=== PATIENT | male | born 1950 | race Caucasian/White ===

== ENCOUNTER 2017-01-03 04:29 | Inpatient (IN) | payer MEDICARE, BC ==
--- OUTSIDE RECORDS SUMMARY | 2017-01-03 04:31 | XMS | Clinical Summary ---
:1950 Author Organization [facility] Address [address] [place] [address] Phone Care Team Providers Name Role Phone , Primary Care Provider Unavailable Allergies No Known Allergies Current Medications Prescription Sig. Disp. Refills Start Date End Date Status rosuvastatin (CRESTOR) Take 40 mg by mouth Active 40 MG tablet daily. CYANOCOBALAMIN, Take by mouth. Active VITAMIN B-12, (VITAMIN B-12 ORAL) aspirin 81 MG EC Take 81 mg by mouth Active tablet daily. gabapentin (NEURONTIN) Take 1,200 mg by mouth Active 300 MG tablet 2 (two) times daily. insulin asp Inject subcutaneously Active prt-insulin aspart 100 2 (two) times daily unit/mL (70-30) Soln with breakfast and dinner. canagliflozin Take 100 mg by mouth Active (INVOKANA) 100 mg Tab daily. silodosin (RAPAFLO) 8 Take 8 mg by mouth Active mg Cap daily. FERROUS FUMARATE ORAL Take 1 tablet by mouth Active daily. omeprazole (PRILOSEC Take 20 mg by mouth Active OTC) 20 MG tablet daily. calcium Take 1 tablet by mouth Active carbonate-vitamin D2 2 (two) times daily. 500 mg(1,250mg) -200 unit tablet warfarin (COUMADIN) 6 Take 6 mg by mouth Active MG tablet once a week. warfarin (COUMADIN) 10 Take 9 mg by mouth Active MG tablet daily. 6 days a week enoxaparin (LOVENOX) Inject 30 mg 05/04/2014 Active 30 mg/0.3 mL Syrg subcutaneously 2 (two) times daily. Active Problems Problem Noted Date Aortic stenosis 03/07/2013 S/P AVR (aortic valve replacement) 03/07/2013 Social History Tobacco Use Types Packs/Day Years Used Date Former Smoker Cigarettes Quit: 01/04/1987 Alcohol Use Drinks/Week oz/Week Comments No Sex Assigned at Date Recorded Not on file Last Filed Vital Signs Vital Sign Reading Time Taken Blood Pressure 161/71 05/09/2014 8:31 AM TEST TECHNICIAN Pulse 81 05/09/2014 8:31 AM TEST TECHNICIAN Temperature 36.3 C (97.3 F) 05/09/2014 8:31 AM TEST TECHNICIAN Respiratory Rate 20 05/09/2014 8:31 AM TEST TECHNICIAN Oxygen Saturation 97% 05/09/2014 8:31 AM TEST TECHNICIAN Inhaled Oxygen Concentration - - Weight 98.2 kg (216 lb 9.6 oz) 05/09/2014 8:31 AM TEST TECHNICIAN Height 180.3 cm (5' 11") 03/14/2013 2:10 PM TEST TECHNICIAN Body Mass Index 30.21 05/09/2014 8:31 AM TEST TECHNICIAN Plan of Treatment Health Maintenance Due Date Last Done Comments INFLUENZA VACCINE 01/03/2017 Implants Implanted Type Area Encyclopedia Research Worker Device Expiration Model / Identifier Date Serial / Lot Valve,Aortic [place] Sm Cuff 23mm - [id number] Valves N/A: [employer] 03/08/2017 [id number] / Implanted:Qty: 1 on 03/07/2013 by Aurelio Vitale MD [employer] [id number] / Results Not on filefrom Last 3 Months
[2017-01-03 05:05] LABS: #Eosinphils 0.1 thou/uL (0.0-0.7); #Lymphocytes 0.6 thou/uL (1.20-3.40); #Monocytes 0.3 thou/uL (0.11-0.59); %Eosinophils 2.1 % (0.0-10.0); %Lymphocytes 9.6 % (21.0-51.0); %Monocytes 4.9 % (0.0-10.0); Hematocrit 22.3 % (42.0-52.0); Mean Platelet Volume 7.6 fL (7.4-10.4); Red Blood Cell (RBC) Count 2.21 mill/uL (4.70-6.10)
[2017-01-03 05:13] LABS: PTT 34.4 SEC (22.9-36.1); Prothrombin Time 20.8 SEC (12.0-14.7)
[2017-01-03] MEDS ORDERED: Fentanyl 20 MCG/ML 250 ML ONE (05:13)
[2017-01-03 05:19] LABS: Oxyhemoglobin 95.1 % (94.0-97.0); Sodium 139 mmol/L (135-148)
[2017-01-03 05:20] LABS: Troponin I 0.111 ng/mL (< 0.028)
[2017-01-03 05:22] LABS: Bilirubin Negative (Negative); Blood, Urine Small (Negative); Glucose, Urine (Dipstick) >=1000 mg/dL (Negative); Ketone, Urine Negative (Negative); Nitrite Negative (Negative); Protein, Urine (Dipstick) 300 mg/dL (Neg-Trace); Urobilinogen 0.2 mg/dL (0.2-1.0)
[2017-01-03 05:25] LABS: Bacteria/HPF 1+ HPF (None Seen); RBC/HPF 0-3 HPF (0-3); Squamous Epithelial None Seen HPF (0-3)
[2017-01-03 05:26] LABS: ALT (SGPT) 56 U/L (8-55); AST (SGOT) 59 U/L (5-34); Alkaline Phosphatase 93 U/L (40-150); Anion Gap 13 mmol/L (10-20); BUN (Urea Nitrogen) 46 mg/dL (8.4-25.7); Bilirubin, Total 0.3 mg/dL (0.2-1.2); CK (CPK) 176 U/L (30-200); Calc. Creatinine Clearance 0 mL/min (70-130); Calcium 8.7 mg/dL (7.8-10.44); Carbon Dioxide 23 mmol/L (23-31); Chloride 109 mmol/L (98-107); Estimated GFR-MDRD 40; Globulin 2.3 g/dL (2.4-3.5); Protein, Total 5.9 g/dL (5.8-8.1)
[2017-01-03 05:27] LABS: Mechanical Tidal Volume 550 ml; Mode SIMV; Pressure Support 10 cmH2O; Vent YES
[2017-01-03 05:36] LABS: #Eosinphils 0.1 thou/uL (0.0-0.7); #Lymphocytes 0.5 thou/uL (1.20-3.40); #Monocytes 0.4 thou/uL (0.11-0.59); #Neutrophils 6.2 thou/uL (1.40-6.50); %Basophils 0.1 % (0.0-1.0); %Eosinophils 1.1 % (0.0-10.0); %Lymphocytes 6.6 % (21.0-51.0); %Monocytes 6.1 % (0.0-10.0); Hematocrit 20.5 % (42.0-52.0); Mean Platelet Volume 7.8 fL (7.4-10.4); Red Blood Cell (RBC) Count 2.02 mill/uL (4.70-6.10); White Blood Cell (WBC) Count 7.2 thou/uL (4.8-10.8)
[2017-01-03 05:38] LABS: Lactic Acid - Sepsis 2.4 mmol/L (0.5-2.2)
[2017-01-03 05:40] LABS: Hyaline Casts/LPF 0-3 HYALINE CAST LPF (0-3 Hyaline); Yeast-All Forms None Seen HPF (None Seen)
[2017-01-03] MEDS ORDERED: Fentanyl 100 MCG/2 ML VIAL ONE (05:47)
[2017-01-03] MEDS ORDERED: Sodium Chloride 0.9% 100 ML ONE (05:58)
[2017-01-03] MEDS ORDERED: cefTRIAXone\\ROCEPHIN 2 GM VIAL ONE (05:58)
[2017-01-03 06:01] LABS: Iron 79 ug/dL (65-175)
[2017-01-03] MEDS ORDERED: Lorazepam 2 MG/ML VIAL ONE (06:02)
[2017-01-03] MEDS ORDERED: GENTAMICIN SULFATE IVPB SCH (06:15)
[2017-01-03] MEDS ORDERED: SODIUM CHLORIDE 0.9% IVPB SCH (06:15)
[2017-01-03] MEDS ORDERED: Vancomycin HCl 1.5 GM in Sodium Chloride 0.9% 250 ML 300 ML IVPB SCH (06:15)
--- NOTE | 2017-01-03 06:17 | PDOC.EVN ---
Event Note - Event Note Event Note: 286697 h&p dictated 1. NSTEMI + ABnormal cardiac enzymes 2. ACute anemia 3. Acute respiratory failure 4. H/O DM type 2 4. FALL 6. htn pLAN: SEE ORDER
[2017-01-03] MEDS ORDERED: Dextrose 5% in Water 1,000 ML IV PRN (06:31)
[2017-01-03] MEDS ORDERED: Dextrose 50% Abboject 50 ML SYRINGE SLOW IVP PRN (06:31)
[2017-01-03 08:26] LABS: Troponin I 0.337 ng/mL (< 0.028)
[2017-01-03] MEDS: Sodium Chloride 0.9% 1,000 ML IV SCH ×2 (08:28→15:52)
[2017-01-03] MEDS ORDERED: Heparin 5,000 UNITS/ML VIAL SC SCH (09:00)
[2017-01-03 09:29] VITALS: BMI 32.4
--- NOTE | 2017-01-03 09:52 | RAD ---
RADIOGRAPH CHEST 1 VIEW: Date: 01/03/17 Time: 0447 HOURS HISTORY: 66-year-old male with respiratory distress and diminished breath sounds, status post intubation. COMPARISON: 10/20/16. FINDINGS: Endotracheal tube at mid to lower thoracic trachea. Lung volumes are low, lower than on the prior st udy. Signs of previous CABG. Multifocal bilateral subsegmental atelectasis and/or scar, greater than on prior study. No consolidation or pulmonary alveolar edema. This is supine positioning, which wou ld make it insensitive for pneumothorax detection. Patient is on a backboard. IMPRESSION: 1. No pulmonary edema or consolidation. 2. Status post intubation. 3. Status post coronary artery bypass graft surgery is evidence for coronary atherosclerotic karon PERRY [] POS: [facility]
--- NOTE | 2017-01-03 09:59 | RAD ---
RADIOGRAPH ABDOMEN 1 VIEW SUPINE: Date: 01/03/17 Time: 0448 hours HISTORY: 66-year-old male status post abdominal trauma. FINDINGS: The image is limited to the lower abdomen and pelvis (excluding the ischial rami and lateral edge of left pelvis). There is gas in nondilated descending colon and rectum. There is paucity of bowel gas elsewhere. A thin catheter is visualized over the right lower quadrant of the abdomen. Patient is o n a backboard. IMPRESSION: Limited field of view. Nonspecific findings. POS: [facility]
--- NOTE | 2017-01-03 10:03 | CON ---
DATE OF CONSULTATION: 01/03/2017 CONSULTING PHYSICIAN: Dr. Schmidt from the hospitalist group. REASON FOR CONSULTATION: Acute respiratory failure. HISTORY OF PRESENT ILLNESS: The patient is a 66-year-old male who was found down at home unresponsive with agonal respirations. He was intubated in the field and brought here for further e valuation. PAST MEDICAL HISTORY: 1. Remarkable for aortic valve replacement for which he is anticoagulated, believe he has also had some type of colonic bleeding and has required intermittent transfusions for that. 2. Coronary artery disease. 3. Myocardial infarction. 4. Stroke. 5. Hyperlipidemia. 6. Diabetes mellitus. PAST SURGICAL HISTORY: He has had foot surgery, aortic valve replacement, cyst removal, left should er surgery, tonsillectomy. ALLERGIES: None. SOCIAL HISTORY: , nonsmoker, nondrinker. MEDICATIONS: Prior to admission, vitamin B6 100 mg daily, warfarin alternating 6 mg and 9 mg dose, thiamine 250 mg daily, Rapaflo 8 mg nightly, Crestor 40 mg daily, omeprazole 40 mg daily, Meloxicam 15 mg daily, Lispro insulin 20 units b.i.d., NovoLog 70/30 60 units b.i.d., Vascepa 2 mg b.i.d., josefina apentin 900 mg b.i.d., [id number] mg daily, Zyrtec 10 mg daily, aspirin 81 mg daily. REVIEW OF SYSTEMS: Unobtainable as the patient is on mechanical ventilation. PHYSICAL EXAMINATION: VITAL SIGNS: Temperature is 98.1, blood pressure 153/70, respiratory rate 18, pulse 80. GENERAL: He is currently intubated on mechanical ventilation. He will wake up for ri and follow co mmands. HEENT: Pupils are reactive. Sclerae are anicteric. Oropharynx clear. NECK: No JVD. CHEST: Fairly clear without wheezing. CARDIOVASCULAR: S1, S2 regular. ABDOMEN: Soft, obese, nontender. EXTREMITIES: No clubbing, cyanosis, or edema. LABORATORY DATA: White blood cell count 7.2, hemoglobin 6.8, hematocrit 20.5, platelet count 151,00 0. INR 1.7, pH 7.41, pCO2 of 33, pO2 105 on SIMV rate 17, tidal volume 550, PEEP 5, pressure suppor t 10, FIO2 60%. Troponin 0.337. Sodium 140, potassium 5.2, chloride 109, CO2 23, BUN 46, creatinin e 1.7, glucose 280. BNP 122. X-RAY FINDINGS: Chest x-ray shows diminished lung volumes without evidence of effusion. ASSESSMENT: 1. Syncopal episode. 2. Possible cardiac ischemia. 3. Acute respiratory failure requiring mechanical ventilation. 4. Diabetes mellitus. PLAN: 1. Cardiology consultation. 2. Continue supportive care with mechanical ventilation for the time being. 3. I am not clear why he is on antibiotics unless we are trying to rule out for sepsis - pulmonary labs indicate the septic. 4. Anemia - transfuse blood.
--- NOTE | 2017-01-03 10:45 | PDOC.EVN ---
Event Note - Event Note Event Note: Patient seen and examined, and daughter at bedside, remains intubated, continue with blood transfusion, cardio and critical team following, likely extubation for later today, no other changes in plan for now. Anticoagulation needs to be determined by cardiology given elevated troponin, further management per consultants. Case and plan d/w patient's family at length, they understand and agree with plan.
[2017-01-03] MEDS: Famotidine/PF 20 mg/2ml Vial SLOW IVP SCH ×2 (11:22→20:41)
[2017-01-03] MEDS: Heparin 25,000 units/D5W 500 ML IV SCH (11:22)
[2017-01-03] MEDS: Heparin 10,000 UNITS/ 10 ML VIAL SLOW IVP SCH ×2 (11:23→18:41)
[2017-01-03] MEDS ORDERED: Piperacillin/Tazobactam 3.375 GM in Sodium Chloride 0.9% 100 ML IVPB SCH (12:00)
--- NOTE | 2017-01-03 12:15 | CT ---
PRELIMINARY REPORT/[facility]/EMERGENCY AFTER HOURS PROCEDURE: EXAM: CT Head Without Intravenous Contrast EXAM DATE/TIME: Exam ordered 01/03/2017 5:35 AM CLINICAL HISTORY: 66 years old, male; Signs and symptoms; Other: Unresponsive TECHNIQUE: Axial computed tomography images of the head/brain without intravenous contrast. COMPARISON: No relevant prior studies available. FINDINGS: Brain: Normal. No hemorrhage. No significant white matter disease. No edema. Ventricles: Normal. No ventriculomegaly. Bones/joints: Normal. No acute fracture. Soft tissues: Normal. Sinuses: Unremarkable as visualized. No acute sinusitis. Mastoid air cells: Unremarkable as visualized. No mastoid effusion. Other findings: Patient is intubated. IMPRESSION: No acute intracranial hemorrhage. Thank you for allowing us to participate in the care of your patient. Dictated and Authenticated by: Aurelio Alvarez MD 01/03/2017 5:54 AM Central Time ([place] \T\ [facility]) FINAL REPORT EMERGENCY AFTER HOURS STUDY CT BRAIN NONCONTRAST: HISTORY: 66-year-old male with loss of consciousness, unresponsive. FINDINGS: There is no midline shift or any other mass effect. There is no evidence of acute intracranial hemo rrhage, large cortical infarct, obstructive hydrocephalus, or extraaxial fluid collection. The calv arium is intact. This report agrees with the preliminary report by [facility]. IMPRESSION: No acute intracranial findings. sukhwinder [] POS: [facility]
--- NOTE | 2017-01-03 12:17 | CT ---
PRELIMINARY REPORT/[facility]/EMERGENCY AFTER HOURS PROCEDURE: EXAM: CT Cervical Spine Without Intravenous Contrast EXAM DATE/TIME: Exam ordered 01/03/2017 5:36 AM CLINICAL HISTORY: 66 years old, male; Signs and symptoms; Other: Unrsponsive; Patient HX: Unresponsive TECHNIQUE: Axial computed tomography images of the cervical spine without intravenous contrast. COMPARISON: No relevant prior studies available. FINDINGS: Vertebrae: No acute cervical spine fracture is identified. Discs/spinal canal/neural foramina: Typical shoulder artifact is present which limits evaluation of the spinal canal. No spinal canal stenosis. Soft tissues: Normal. Lung apices: The visualized portions of the lung apices are normal. Tubes, lines and devices: Endotracheal tube and feeding tube are present. IMPRESSION: No acute cervical spine fracture is identified. Thank you for allowing us to participate in the care of your patient. Dictated and Authenticated by: Aurelio Alvarez MD 01/03/2017 6:01 AM Central Time ([place] \T\ [place]) FINAL REPORT EMERGENCY AFTER HOURS STUDY CT CERVICAL SPINE NONCONTRAST: HISTORY: 66-year-old male status post cervical trauma from fall. FINDINGS: There are no jumped or perched facets. There is no evidence of acute fracture. The vertebral body heights are maintained. There is no prevertebral soft tissue swelling. This report agrees with the preliminary report by [facility]. IMPRESSION: No evidence of acute fracture or acute traumatic subluxation. sukhwinder [] POS: [facility]
--- NOTE | 2017-01-03 12:19 | CT ---
PRELIMINARY REPORT/[facility]/EMERGENCY AFTER HOURS PROCEDURE: EXAM: CT Abdomen and Pelvis Without Intravenous Contrast EXAM DATE/TIME: Exam ordered 01/03/2017 6:53 AM CLINICAL HISTORY: 66 years old, male; Signs and symptoms; Other: Unresponsive TECHNIQUE: Axial computed tomography images of the abdomen and pelvis without intravenous contrast. Coronal reformatted images were created and reviewed. COMPARISON: No relevant prior studies available. FINDINGS: Lower thorax: There are small bilateral pleural effusions with bilateral consolidations at the lung bases suggestive of pulmonary edema. ABDOMEN: Liver: There are no focal liver lesions present. Gallbladder and bile ducts: Multiple calcified gallstones are present. No ductal dilation. Pancreas: The pancreas is normal. No ductal dilation. Spleen: The spleen is normal. Adrenals: The adrenal glands are normal. Kidneys and ureters: The kidneys are normal. No obstructing stones. No hydronephrosis. Stomach and bowel: The duodenum is unremarkable. The colon is normal. There is no evidence of intest inal perforation or obstruction. No mucosal thickening. Appendix: A normal appendix is identified. PELVIS: Bladder: The bladder is decompressed by a Bonner catheter but is otherwise normal. There is a small a mount of intraluminal air consistent with instrumentation. No stones. Reproductive: Unremarkable as visualized. ABDOMEN and PELVIS: Intraperitoneal space: Normal. No free air. No significant fluid collection. Bones/joints: There are sternal wires consistent with previous sternotomy incision. No acute fractur e. No dislocation. Soft tissues: Normal. Vasculature: The vasculature demonstrates diffuse moderate atherosclerotic calcification. No abdomin al aortic aneurysm. Lymph nodes: Normal. No enlarged lymph nodes. Tubes, lines and devices: A nasogastric tube is seen entering the stomach. IMPRESSION: 1. There are small bilateral pleural effusions with bilateral consolidations at the lung bases sugge stive of pulmonary edema. 2. No acute abdominal pelvic pathology. Thank you for allowing us to participate in the care of your patient. Dictated and Authenticated by: Aurelio Alvarez MD 01/03/2017 7:23 AM Central Time ([place] \T\ [facility]) FINAL REPORT CT ABDOMEN AND PELVIS WITHOUT CONTRAST: Date: 01/03/17 HISTORY: Evaluate for hematoma. Found at home unresponsive. Falls. FINDINGS: Small effusions. Mild atelectatic changes. Heart size is prominent. Dense aortic calcifications with likely a valve replacement. Extensive coronary artery calcifications. No nephroureterolithiasis or hydroureteronephrosis. No secondary evidence of recently passed stone. Extensive vascular calcificat ions of the aorta. No aneurysmal dilatation. There appears to be a soft tissue contusion of anterior abdominal wall. No rectus sheath hematoma. No retroperitoneal hematoma. Moderate facet arthropathy lower lumbar spine. No lumbar spine compression fracture. No fracture of the pelvis. Large osteophyt e formation is noted of the thoracic spine. No displaced rib fracture. IMPRESSION: Findings and impression are concordant with the preliminary report by [facility]. POS: [facility]
--- NOTE | 2017-01-03 13:53 | HP ---
DATE OF ADMISSION: 01/03/2017 CHIEF COMPLAINT: Unresponsive. HISTORY OF PRESENT ILLNESS: Patient is 66 years old male with a past medical history of mechanical aortic valve replacement; diabetes mellitus, type 2; hyperlipidemia; hypertension; coronary artery disease; stroke; was brought to the ER, because of acute respiratory failure. According to the , the patient has had a fall 2 days back on Wednesday. Denies losing any consciousness. The patient was doing fine and he went to bed last night. He woke up this morning to go to the restroom and went to check on him and patient was found on the floor gasping for air, so EMS was called. Upon EMS arrival, the patient was found to be lethargic and gasping for air. So, patient was intubated in the field and brought to the ER. Upon ER arrival, the patient is on the vent support, so not able to get much history. According to the , the patient is currently having some anemia for the past 1 year, and being getting IV iron transfusions and patient is scheduled to get MediPort placement on coming Wednesday, so he was off Coumadin for a few days, but he started taking Coumadin since Wednesday. Denies any cough. Denies sputum production. No other history available from the patient. According to the , no other issues at this time. PAST MEDICAL HISTORY: As per HPI. PAST SURGICAL HISTORY: CABG, mechanical aortic valve replacement. SOCIAL HISTORY: No smoking, no alcohol, no drugs. FAMILY HISTORY: Positive for heart problems. MEDICATIONS: Reviewed. REVIEW OF SYSTEMS: Unavailable from the patient, as the patient is currently intubated. PHYSICAL EXAMINATION: VITAL SIGNS: In the ER, blood pressure 101/60, pulse ox 100% on 60% FIO2, afebrile, respiration rate 25. GENERAL: This patient is lethargic, sedated, and intubated, but arousable, following commands. NECK: Supple. No JVD. ORAL CAVITY: Positive for ET tube. CARDIOVASCULAR SYSTEM: S1, S2 present. Positive for clicks. No murmurs, no rubs, no gallops. RESPIRATORY SYSTEM: No wheezing. Positive for rhonchi, diminished at the bases , on vent support. GASTROINTESTINAL: Abdomen is soft, nontender, no guarding, no organomegaly, no masses felt. Distended. MUSCULOSKELETAL: No edema. CRANIAL NERVE SYSTEM: Awake, follows commands. Strength intact, sensory intact. PSYCHIATRIC: Mood is appropriate at this time. INTEGUMENTARY: No obvious rashes seen. Positive for birthmark on the right upper side of the chest. MUSCULOSKELETAL: Chronic skin changes, trace edema present. CRANIAL NERVE SYSTEM: lethargic, not following commands. LABORATORY DATA: At the time of H and P performed, white count 7.2, hemoglobin 6.8, platelet count is 151. PT 20.8, INR 1.7. ABG showed pH 7.41, pCO2 43, pO2 of 105. BMP showed sodium 140, potassium 5.2, chloride 109, CO2 23, BUN 46 , creatinine 1.72. Lactic acid 2.4. CK-MB 7.2, troponin 0.111. EKG positive for some ST depressions. ASSESSMENT AND PLAN: The patient is a 66 years old male. 1. Possible non-ST elevation myocardial infarction with abnormal EKG, plus history of mechanical aortic valve replacement. Plan to consult Cardiology to evaluate the patient. Plan to keep patient n.p.o. We will monitor patient closely. If CT head and CT spine is negative, we will go ahead and give a dose of Lovenox. We will monitor the patient closely. 2. Acute respiratory failure, etiology unclear at this time. We will monitor the patient closely. Continue vent support. We will go ahead and consult Pulmonary to evaluate the patient. 3. History of mechanical aortic valve replacement. INR is subtherapeutic. We will go ahead and give a dose of Coumadin today. If the CT is negative, we will check with Cardiology about starting the patient on heparin drip. 4. History of gastrointestinal bleeds and acute anemia. We will go ahead and type and cross and transfuse 2 units of packed RBCs. We will monitor patient closely. 5. History of hypertension. Hold blood pressure medications at this time. 6. History of diabetes mellitus, type 2. Monitor blood sugars. We will do insulin sliding scale. 7. History of coronary artery disease. Continue home medications. The case was discussed in detail with the patient and patient's and daughter at the bedside. SATYA
--- NOTE | 2017-01-03 14:04 | CON ---
DATE OF CONSULTATION: 01/03/2017 REASON FOR CONSULTATION: Evaluation for proceeding with prior planned MediPort placement. PERTINENT HISTORY: The patient is a 66-year-old male scheduled for elective, outpatient MediPort placement tomorrow morning by Dr. Rojas. He has a chronic anemia with need for periodic red blood cell and iron infusions. He has extremely poor venous access and had been referred for MediPort placement to facilitate the above. He is also on chronic coumadin anticoagulation for a mechanical aortic valve. He was admitted this morning after being found down at home at which time he was intubated. He has since been extubated. Mental status has returned to baseline. He is receiving 2 units of packed red blood cells for admission hemoglobin of 6.8. His last coumadin dose was yesterday. INR this morning was 1.7. PAST MEDICAL HISTORY: 1. Hypertension. 2. Dyslipidemia. 3. Diabetes. 4. Coronary artery disease status post OK and coronary artery bypass grafting. 5. Aortic stenosis status post mechanical aortic valve replacement. 6. Cerebrovascular accident with left hemiparesis. PAST SURGICAL HISTORY: 1. Coronary artery bypass grafting. 2. Aortic valve replacement. 3. Removal of pilonidal cyst. 4. Left shoulder surgery. 5. Tonsillectomy. ALLERGIES: None. SOCIAL HISTORY: Prior smoker, having quit more than 10 years ago. Nondrinker. FAMILY HISTORY: Noncontributory. REVIEW OF SYSTEMS: Denies chest pain or shortness of breath. No history of liver disease. MEDICATIONS PRIOR TO ADMISSION: Aspirin, Zyrtec, Farxiga, gabapentin, insulin 70/30, omeprazole, Crestor, Rapaflo, and warfarin with last dose yesterday. CURRENT MEDICATIONS: Pepcid, heparin drip, and multiple p.r.n. medications. LABORATORY FINDINGS: INR 1.7. Creatinine 1.72. Hemoglobin 6.8. Platelet count 151,000. PHYSICAL EXAMINATION: VITAL SIGNS: Weight 239 pounds. Blood pressure 121/69, heart rate 95, temperature 97.7. GENERAL: Overweight male in no acute distress. NECK: Without JVD or adenopathy. HEART: Regular rate and rhythm with no murmurs. LUNGS: Clear. EXTREMITIES: With 2+ edema in each leg. VASCULAR: Palpable radial and femoral pulses. No carotid bruits were appreciated. NEUROLOGIC: Significant for left-sided weakness. IMPRESSION: Poor venous access with ongoing need of intermittent red blood cell and iron infusions. RECOMMENDATIONS: Proceed to MediPort placement is planned in the a.m. Will stop intravenous heparin one hour prior to procedure. The indications, benefits , alternatives, and risks have already been explained to the patient and his family by Dr. Rojas. The patient and family wished to proceed. All new questions answered. SATYA
[2017-01-03] MEDS ORDERED: Lorazepam 2 MG/ML VIAL SLOW IVP PRN (14:30)
[2017-01-03] MEDS ORDERED: Morphine Sulfate 2 MG/ML SYRINGE SLOW IVP PRN (14:30)
[2017-01-03] MEDS ORDERED: Fentanyl 20 MCG/ML 250 ML IVPB SCH (14:30)
[2017-01-03] MEDS ORDERED: DISCONTINUE PREVIOUS NARCOTIC PAIN MEDICATIONS AND BENZODIAZEPINES FS SCH (14:30)
[2017-01-03] MEDS ORDERED: Propofol 1,000 MG/100 ML VIAL IV PRN (14:30)
[2017-01-03] MEDS ORDERED: Vancomycin HCl 1.5 GM, Admixture Fee 1 EACH in Sodium Chloride 0.9% 250 ML 300 ML IVPB SCH (18:00)
[2017-01-03] MEDS: HumaLOG 300 UNITS/3 ML VIAL SC PRN ×2 (18:13→20:51)
--- NOTE | 2017-01-03 20:41 | CON ---
DATE OF CONSULTATION: 01/03/2017 CARDIOLOGY CONSULTATION REFERRING PHYSICIAN: Saulo Schmidt M.D. REASON FOR CONSULTATION: Elevated cardiac enzymes in the phase of profound anemia. HISTORY OF PRESENT ILLNESS: Mr. Moses is a 66-year-old gentleman with a history of coron bob artery disease and valvular heart disease who was found unconscious in the bathroom by his . He was found on the floor of the bathroom gasping for air and EMS was summoned. He was lethargic upon EMS arrival and he was intubated in the field and brought to the emergency department. He has subsequently been extubated successfully and is stable hemodynamically. He was found to be profound ly anemic and was receiving 2 units of packed red blood cells at the time of my evaluation. He has been on chronic Coumadin for anticoagulation for mechanical aortic valve replacement and this has been held recently for preparation for MediPort placement by Dr. Rojas. PAST MEDICAL HISTORY: 1. Coronary artery disease with a history of CABG. 2. Valvular heart disease with history of mechanical aortic valve prosthesis. 3. CVA with left-sided residual neurologic deficits. 4. Recurrent anemia. 5. Type 2 diabetes mellitus. 6. Dyslipidemia. 7. Hypertension. PAST SURGICAL HISTORY: 1. CABG. 2. Mechanical aortic valve replacement. ALLERGIES: No known drug allergies. SOCIAL HISTORY: He denies tobacco use, ethanol abuse, and illicit recreational drug use. FAMILY HISTORY: Negative with respect to premature atherosclerosis. CURRENT MEDICATIONS AT HOME: Include: 1. Aspirin 81 mg daily. 2. Zyrtec 10 mg daily. 3. Dapagliflozin 10 mg daily. 4. Gabapentin 900 mg. 5. Vascepa 2 g b.i.d. 6. Insulin 60 units subcu daily. 7. Lispro 20 units subcu daily. 8. Meloxicam 15 mg daily. 9. Omeprazole 40 mg daily. 10. Crestor 40 mg daily. 11. Rapaflo 80 mg daily. 12. Coumadin 9 mg alternating with 6 mg daily. 13. Pyridoxine 100 mg daily. REVIEW OF SYSTEMS: As per history of present illness. Remainder of 12 system review is negative. PHYSICAL EXAMINATION: VITAL SIGNS: Blood pressure is 110/51, pulse 62 and regular, respiratory rate 16 and nonlabored, te mperature 98.8, oxygen saturation 94% on room air. GENERAL: This is a well-developed, overweight 66-year-old gentleman in no acute distress. He was intubated on my initial evaluation prepping for extubation. He was alert and oriented, ans wered questions appropriately. HEENT: Head is atraumatic, normocephalic. Pupils were equally round and reactive. Conjunctivae ar e clear. No oral lesions. NECK: Supple, no JVD, thyromegaly, or carotid bruits. CHEST: Symmetrical inspiration and expiration. HEART: Regular in rate and rhythm with crisp metallic click. PMI is nondisplaced, not enlarged. LUNGS: Clear to auscultation in all [place]. No adventitious sounds appreciated. ABDOMEN: Soft, nontender, nondistended, without mass or organomegaly. Bowel sounds are present in all 4 quadrants. No flank bruits auscultated. EXTREMITIES: 2+ pulses noted bilaterally. Upper and lower extremity strength 5/5 bilaterally. No clubbing, cyanosis or significant edema. NEUROLOGIC: Grossly intact with no obvious focal neurologic deficits. DATABASE: EKG reveals sinus rhythm, nonspecific ST changes. LABORATORY DATA: CBC reveals white count of 7, H\T\H is 6 and 20, platelet count 151,000. Differen tial white blood cells normal. Red cell indices are macrocytic with MCV of 101. Coagulation studie s: PT is 20.8, INR of 1.7. Chemistries: Electrolytes; sodium is 140, potassium 5.2, chloride 109, bicarbonate 23, BUN and creatinine of 46 and 1.7, GFR is estimated at 40, glucose 280. LFTs: AST 59, ALT 56. Total CK is 176 with MB fraction of 7.2. Troponin is indeterminate with level of 0.111 . BNP mildly elevated at 122. ASSESSMENT: 1. Syncope secondary to hypovolemia and profound anemia. 2. Profound anemia with questionable etiology. 3. Chronic kidney disease stage 3. 4. Type 2 diabetes mellitus. 5. Coronary artery disease with history of coronary artery bypass graft, stable. 6. Mechanical aortic valve prosthesis with chronic anticoagulation.
[2017-01-03] MEDS ORDERED: FLU VACC TS2017-18 (>65YR) 0.5 ML SYRINGE IM ONE (21:00)
[2017-01-04 01:24] LABS: PTT Greater than 250.0 SEC (22.9-36.1)
[2017-01-04 05:00] LABS: Prothrombin Time 19.7 SEC (12.0-14.7)
[2017-01-04 05:01] LABS: PTT 88.6 SEC (22.9-36.1)
[2017-01-04 05:30] LABS: Anion Gap 8 mmol/L (10-20); BUN (Urea Nitrogen) 33 mg/dL (8.4-25.7); Calc. Creatinine Clearance 87 mL/min (70-130); Calcium 8.2 mg/dL (7.8-10.44); Carbon Dioxide 25 mmol/L (23-31); Chloride 112 mmol/L (98-107); Estimated GFR-MDRD 55
[2017-01-04] MEDS: Heparin 25,000 units/D5W 500 ML IV SCH (05:30)
[2017-01-04 05:33] LABS: #Eosinphils 0.1 thou/uL (0.0-0.7); #Lymphocytes 0.7 thou/uL (1.20-3.40); #Monocytes 0.5 thou/uL (0.11-0.59); #Neutrophils 5.4 thou/uL (1.40-6.50); %Basophils 0.6 % (0.0-1.0); %Eosinophils 1.7 % (0.0-10.0); %Lymphocytes 11.1 % (21.0-51.0); %Monocytes 6.8 % (0.0-10.0); Elliptocytes SLIGHT = 2-5 cells (100X) (0-1/hpf); Hematocrit 26.2 % (42.0-52.0); Mean Platelet Volume 8.1 fL (7.4-10.4); Tear Drops SLIGHT = 2-5 cells (100X) (0-1/hpf); White Blood Cell (WBC) Count 6.7 thou/uL (4.8-10.8)
[2017-01-04] MEDS ORDERED: Lidocaine 1% w/Epinephrine 1:200K 30 ML VIAL ONE (06:43)
[2017-01-04] MEDS ORDERED: Fentanyl 100 MCG/2 ML VIAL ONE (06:57)
[2017-01-04] MEDS ORDERED: Diprivan 20 ML ONE (06:57)
[2017-01-04] MEDS ORDERED: Lidocaine 1% PF 5 ML VIAL ONE (07:45)
[2017-01-04] MEDS ORDERED: Propofol 200 MG/20 ML VIAL ONE (07:45)
[2017-01-04] MEDS ORDERED: Promethazine HCl 25 MG/ML VIAL SLOW IVP PRN (08:47)
[2017-01-04] MEDS ORDERED: Ondansetron HCl/PF 4 MG/2 ML Vial IVP PRN (08:47)
[2017-01-04] MEDS ORDERED: Promethazine HCl 25 MG/ML VIAL IM PRN (08:47)
[2017-01-04] MEDS ORDERED: Promethazine HCl 25 MG/ML VIAL ONE (08:52)
[2017-01-04] MEDS ORDERED: Ondansetron HCl/PF 4 MG/2 ML Vial ONE (08:53)
--- NOTE | 2017-01-04 09:03 | OP ---
PREOPERATIVE DIAGNOSIS: Chronic anemia, in need of intravenous access. PROCEDURE: Placement of left internal jugular MediPort catheter. SURGEON: Jhoan Rojas M.D. ANESTHESIA: TIVA with local 1% with epinephrine. PROCEDURE IN DETAIL: After adequate TIVA had been accomplished, the patient was prepped and draped. A 1% lidocaine was used to infiltrate the left neck region and using ultrasound, the jugular vein was cannulated and a wire inserted. Under fluoroscopic guidance, the wire was placed in the superio r vena cava. Following this, a separate incision was made on the anterior chest wall after lidocain e had been infiltrated. Dilator sheath was then placed under fluoroscopy following which the cathet er was advanced. The catheter repeatedly was going up the right subclavian vein and for this reason a wire was passed through the catheter and directed into the superior vena cava. Then, peel-away s jose was removed and the catheter was then tunneled above the anterior to the clavicle to the incis ion on the chest where it was connected to the MediPort and flushed. Incision in the neck was check ed to ensure the catheter, had a nice gentle curve. Following this, the wounds were closed in layer s and the patient is to be taken to the recovery room.
[2017-01-04] MEDS ORDERED: Warfarin Sodium 5 MG TAB PO SCH (09:28)
--- NOTE | 2017-01-04 09:53 | PRG ---
DATE OF SERVICE: 01/04/2017 The patient is doing better. He had a MediPort placed this morning. PHYSICAL EXAMINATION: VITAL SIGNS: On exam temperature 98.6, pulse 92, blood pressure 121/42. 24 hour intake 3513, outpu t 3235. HEENT: Unremarkable. NECK: No JVD. CHEST: Clear to auscultation without wheezing. CARDIAC: S1 and S2 regular. ABDOMEN: Soft. EXTREMITIES: No edema. LABORATORY DATA: White blood cell count 6.7, hematocrit 26.2, platelet count 142. PTT 88.6, sodium 140, potassium 4.7, chloride 112, CO2 25, BUN 33, creatinine 1.3, glucose 190. ASSESSMENT: 1. Status post cardiopulmonary arrest related to severe anemia. 2. History of aortic valve replacement requiring anticoagulation. 3. Chronic gastrointestinal blood loss. 4. Status post MediPort placement. 5. Diabetes mellitus. PLAN: The patient can be transferred out to telemetry. He has been restarted on Lovenox by Dr. Chito lees. Most of his issues are cardiac and GI in nature. I am available as needed.
--- NOTE | 2017-01-04 10:22 | RAD ---
ONE VIEW CHEST: HISTORY: Status post Mediport catheter placement. COMPARISON: 01/03/2017 FINDINGS: One view chest demonstrates a left-sided Mediport catheter with the distal tip crossing the midline and terminating in the expected region of the proximal right subclavian vein. Confirmation of posit ion is recommended. No pneumothorax. Sternotomy wires are present. There is atherosclerosis of th e aorta. Lung volumes are diminished. IMPRESSION: Left-sided Mediport catheter, as above. Confirmation of catheter tip position is recommended. POS: [facility]
--- NOTE | 2017-01-04 10:22 | PDOC.PN ---
- Subjective Encounter Start Date: 01/04/17 Encounter Start Time: 10:19 Subjective: alert, has mild cough, OW ok - Objective MAR Reviewed: Yes Vital Signs & Weight: Vital Signs (12 hours) Temp Pulse Ox 01/04/17 04:00 98.6 F 01/04/17 00:00 98.6 F 99 Weight Weight 240 lb 1.334 oz Most Recent Monitor Data Heart Rate from ECG 92 NIBP 121/42 NIBP BP-Mean 61 Respiration from ECG 21 SpO2 97 I&O: 01/03/17 01/04/17 01/05/17 06:59 06:59 06:59 Intake Total 3513.1 Output Total 3235 Balance 278.1 Result Diagrams: 01/04/17 04:09 01/04/17 04:09 Additional Labs: Accuchecks 01/04/17 01/03/17 01/03/17 06:13 20:50 17:56 POC Glucose 176 H 235 H 213 H 01/03/17 12:54 POC Glucose 193 H Phys Exam - Physical Examination Constitutional: NAD Neck: no JVD Respiratory: no wheezing, no rales Cardiovascular: RRR, no significant murmur crisp valve sounds Gastrointestinal: soft, non-tender, positive bowel sounds Musculoskeletal: edema present Dx/Plan (1) Acute respiratory failure with hypoxia and hypercapnia Code(s): J96.01 - ACUTE RESPIRATORY FAILURE WITH HYPOXIA; J96.02 - ACUTE RESPIRATORY FAILURE WITH HYPERCAPNIA Status: Acute (2) H/O prosthetic aortic valve replacement Code(s): Z95.2 - Status: Chronic (3) Anemia Code(s): D64.9 - ANEMIA, UNSPECIFIED Status: Acute Qualifiers: Anemia type: unspecified type Qualified Code(s): D64.9 - Anemia, unspecified (4) DM type 2 (diabetes mellitus, type 2) Status: Acute Qualifiers: Diabetes mellitus complication status: with kidney complications Diabetes mellitus complication detail: with chronic kidney disease Chronic kidney disease stage: stage 3 (moderate) (5) CAD (coronary artery disease) Code(s): I25.10 - ATHSCL HEART DISEASE OF [place] CORONARY ARTERY W/O ANG PCTRS Status: Acute Qualifiers: Coronary Disease-Associated Artery/Lesion type: [place] artery [place] vs. transplanted heart: [place] heart Associated angina: without angina Qualified Code(s): I25.10 - Atherosclerotic heart disease of [place] coronary artery without angina pectoris (6) HTN (hypertension) Code(s): I10 - ESSENTIAL (PRIMARY) HYPERTENSION Status: Chronic Qualifiers: Hypertension type: essential hypertension Qualified Code(s): I10 - Essential (primary) hypertension - Plan post mediport -: on anticoag -: post transfusion -: cont to monitor, discuss with consultants * .
[2017-01-04] MEDS: Enoxaparin Sodium 40 MG/0.4 ML SYRINGE SC SCH ×2 (10:45→21:21)
[2017-01-04] MEDS ORDERED: Enoxaparin Sodium 40 MG/0.4 ML SYRINGE SC SCH (10:45)
[2017-01-04] MEDS: Famotidine/PF 20 mg/2ml Vial SLOW IVP SCH ×2 (10:45→21:21)
[2017-01-04] MEDS: Aspirin 81 mg Enteric Coated Tablet PO SCH (10:46)
[2017-01-04] MEDS: Sodium Chloride 0.9% 1,000 ML IV SCH (10:57)
--- NOTE | 2017-01-04 13:57 | PQF ---
DATE: 01-04-17 ATTN: DR. HOSSEIN MENDEZ Please exercise your independent, professional judgment in responding to the clarification form. Clinical indicators are provided on the bottom of this form for your review Please check appropriate box(s): [ ] Acute blood loss anemia [ ] Anemia: [ ] Aplastic [ ] Nutritional [ ] Drug induced (specify) ___ [ ] Hemolytic [ ] Hereditary [ ] Acquired [ ] Autoimmune [ ] Non-autoimmune [ ] Enzyme disorder [ ] Chronic Anemia: [ ] Blood loss [ ] Hemolytic [ ] Simple [ ] Due to Vitamin B12 Deficiency [ ] Other [ ] Anemia of Chronic Disease (please specify) [ ] Other diagnosis [ xx ] Unable to determine In addition, please specify: Present on Admission (POA): [ x] Yes [ ] No [ ] Unable to determine For continuity of documentation, please document condition throughout progress notes and discharge summary. Thank You. CLINICAL INDICATORS - SIGNS / SYMPTOMS / LABS ER DIAGNOSIS: AMS, AGONAL BREATHING, ANEMIA, FALLS H&P: HISTORY OF GI BLEEDS AND ACUTE ANEMIA. WE WILL GO AHEAD AND T&C AND TRANSFUSE 2 UNITS OF PACKED RBC'S. EVENT NOTE DR. PRESTON 01-03-17: ACUTE ANEMIA CONSULT NOTE DR. MATHEW 01-04-17: CHRONIC GI BLOOD LOSS PN DR. MENDEZ 01-04-17: ACUTE ANEMIA HGB: 01-03-17: 7.4, 6.8 01-04-17: 8.5 RISK FACTORS: H&P: HISTORY OF GI BLEEDS AND ACUTE ANEMIA. WE WILL GO AHEAD AND T&C AND TRANSFUSE 2 UNITS OF PACKED RBC'S. ER DOCUMENTATION: HX OF CHRONIC NOSE BLEEDS TREATMENTS: BLOOD TRANSFUSION 01-03-17: 2 UNITS OF LEUK-REDUCED RBC (This form is maintained as a part of the permanent medical record) 2014 [employer]. All Rights Reserved [email or web address] Office: [phone] [facility]
[2017-01-04] MEDS: Warfarin Sodium 2 MG TAB PO SCH (16:53)
[2017-01-04] MEDS: HumaLOG 300 UNITS/3 ML VIAL SC PRN (17:43)
[2017-01-04] MEDS: Acetaminophen 325 MG TAB PO PRN (17:44)
[2017-01-04] MEDS: Silodosin 8 MG CAP PO SCH (21:21)
[2017-01-04] MEDS ORDERED: Ondansetron ODT 4 MG TAB SL PRN (21:38)
[2017-01-04] MEDS: Ibuprofen 200 MG TAB PO PRN (21:52)
[2017-01-04 22:21] LABS: Mean Platelet Volume 7.7 fL (7.4-10.4); Red Blood Cell (RBC) Count 2.79 mill/uL (4.70-6.10); White Blood Cell (WBC) Count 6.6 thou/uL (4.8-10.8)
[2017-01-04] MEDS: Ondansetron HCl/PF 4 MG/2 ML Vial IVP PRN (22:26)
[2017-01-04 22:28] LABS: PTT 43.3 SEC (22.9-36.1)
[2017-01-04 22:29] LABS: Prothrombin Time 18.3 SEC (12.0-14.7)
[2017-01-04 22:37] LABS: Anion Gap 14 mmol/L (10-20); BUN (Urea Nitrogen) 28 mg/dL (8.4-25.7); Calc. Creatinine Clearance 80 mL/min (70-130); Calcium 8.5 mg/dL (7.8-10.44); Carbon Dioxide 21 mmol/L (23-31); Chloride 110 mmol/L (98-107); Estimated GFR-MDRD 50
[2017-01-04 22:38] LABS: #Eosinphils 0.1 thou/uL (0.0-0.7); #Lymphocytes 0.5 thou/uL (1.20-3.40); #Monocytes 0.4 thou/uL (0.11-0.59); #Neutrophils 5.6 thou/uL (1.40-6.50); %Basophils 0.2 % (0.0-1.0); %Eosinophils 0.9 % (0.0-10.0); %Lymphocytes 7.7 % (21.0-51.0); %Monocytes 6.1 % (0.0-10.0); Anisocytosis SLIGHT = 6-15 cells (100X) (0-5/hpf); Basophilic Stippling SLIGHT = 1-2 cells (100X) (None Seen); Elliptocytes SLIGHT = 2-5 cells (100X) (0-1/hpf); Polychromasia SLIGHT = 2-3 cells (100X) (0-2/hpf); Tear Drops SLIGHT = 2-5 cells (100X) (0-1/hpf)
[2017-01-04] MEDS: Albuterol Sulfate 1.25 MG/3 ML NEB NEB SCH (22:51)
--- NOTE | 2017-01-04 23:04 | RAD ---
UPRIGHT PORTABLE CHEST ONE VIEW: History: 66-year-old male, follow up abnormal pleural and parenchymal changes on prior CT scan, 01-03-17. Comparison: 01-04-17 chest one view. FINDINGS: Post underlying sternotomy. Left central venous catheter and injection port. The tip of the jugular venous catheter appears to ascend into the region of the right subclavian vein/innominate vein. Mini mal patchy linear and parenchymal changes are noted bilaterally. Slight costophrenic angle blunting bilaterally. Poor inspiration. IMPRESSION: Stable chest from 01-04-17 9:10 a.m. No new process. POS: [facility]
[2017-01-04] MEDS: Piperacillin/Tazobactam 3.375 GM in Sodium Chloride 0.9% 100 ML IVPB SCH (23:58)
[2017-01-05] MEDS: HumaLOG 300 UNITS/3 ML VIAL SC PRN ×3 (02:11→18:28)
[2017-01-05] MEDS: Ondansetron HCl/PF 4 MG/2 ML Vial IVP PRN ×2 (03:44→15:36)
[2017-01-05 05:33] LABS: Oxyhemoglobin 95.7 % (94.0-97.0); Sodium 142 mmol/L (135-148)
[2017-01-05 05:37] LABS: Mode 2LNC; Modified Allen's Test POSITIVE; Vent NO
[2017-01-05] MEDS: Ibuprofen 200 MG TAB PO PRN (05:46)
[2017-01-05] MEDS: Piperacillin/Tazobactam 3.375 GM in Sodium Chloride 0.9% 100 ML IVPB SCH ×4 (05:47→23:51)
[2017-01-05] MEDS: Acetaminophen 325 MG TAB PO PRN ×2 (05:59→21:38)
[2017-01-05 06:19] LABS: #Lymphocytes 0.6 thou/uL (1.20-3.40); #Monocytes 0.4 thou/uL (0.11-0.59); #Neutrophils 5.3 thou/uL (1.40-6.50); %Basophils 0.2 % (0.0-1.0); %Eosinophils 0.7 % (0.0-10.0); %Lymphocytes 9.3 % (21.0-51.0); %Monocytes 6.5 % (0.0-10.0); Anisocytosis SLIGHT = 6-15 cells (100X) (0-5/hpf); Hematocrit 27.2 % (42.0-52.0); Mean Platelet Volume 7.6 fL (7.4-10.4); Polychromasia SLIGHT = 2-3 cells (100X) (0-2/hpf); Tear Drops SLIGHT = 2-5 cells (100X) (0-1/hpf); White Blood Cell (WBC) Count 6.3 thou/uL (4.8-10.8)
[2017-01-05 06:20] LABS: Anion Gap 13 mmol/L (10-20); BUN (Urea Nitrogen) 26 mg/dL (8.4-25.7); Calc. Creatinine Clearance 79 mL/min (70-130); Calcium 8.6 mg/dL (7.8-10.44); Carbon Dioxide 20 mmol/L (23-31); Chloride 111 mmol/L (98-107); Estimated GFR-MDRD 49
[2017-01-05] MEDS: Albuterol Sulfate 1.25 MG/3 ML NEB NEB SCH ×3 (06:52→19:32)
--- NOTE | 2017-01-05 06:59 | CON ---
DATE OF CONSULTATION: 01/04/2017 REFERRING PHYSICIAN: Eduardo Lynch M.D. REASON FOR CONSULTATION: Anemia, history of black tarry stool off and on over the last 2 weeks. HISTORY OF PRESENT ILLNESS: Mr. Stephanie Howell is a 66-year-old male who is known to me from before. The patient had not seen me over the last couple of years. The patient has had coronary a rtery bypass graft many years ago. The patient also had aortic valve replacement done in March 06 and was placed on Coumadin. Since being on Coumadin, he has had multiple episodes of GI bleedin g. The patient has been hospitalized several times at the [facility] with anemi a due to blood loss and very less stool. The patient has had a bleeding ulcer, bleeding AVM in the stomach. He also had a colonoscopy with removal of polyps in the past. The patient has had multipl e EGDs and colonoscopies which were negative for any pathology for GI bleeding. The patient had a c apsule endoscopy in 2013 and was found to have small bowel AVMs. He was sent to [place] recently fo r an enteroscopy, but it could not be done because of hyperglycemia. Subsequently, he went to [facility] in [place] and had a single balloon enteroscopy. He was found to have AVM with bleeding sm all bowel and was cauterized. This was done in I believe 07/2014. The patient has done well over t he last couple of years. The patient last time saw me was in 08/2014 and had not seen me subsequent ly. The patient being seen by DAILY Perry at the [facility]. The patient has had some an emia off and on and has been transfused and also transferred to Dr. Garg for Hematology input. As per the patient, the patient will be receiving intermittent iron infusion every week over the las t several weeks. Because of lack of IV access, he was referred to Dr. Rojas for a MediPort [facility] t. The patient was brought to the ER by the family after the patient was found unresponsive yesterd ay at home. Apparently, he went to the bathroom and his found him lying on the floor, gasping for air. He was brought to the ER and was intubated and was on the ventilator for a day. At the pr esent time, he is on the telemetry unit. He is awake, alert, and communicative. The patient denies any abdominal pain, nausea, or vomiting. Denies history of any dysphagia or odynophagia. The karl ent tells me he has had some black tarry stool off and on over the last couple of weeks. The stool is tarry and almost like a jet black. It is also foul smelling. The patient has had no stool today . He has had no stool yesterday. The last one was done probably Wednesday or Wednesday and it was mariangel k as per the patient. Yesterday, when he fainted, he does not remember having any chest pain, diffi culty breathing, palpitation. There is no history of any hematemesis or melena. The patient has be en seen by Dr. Rojas and has had a MediPort placement today. Laboratory data shows WBC of 6700, adm itting hemoglobin 7.4, today it is 8.5 after 2 units of packed RBCs. He also had 2 units of packed RBCs a week or 10 days ago. His PT IS 19.7, INR is 1.6, PTT is 88.6. He has no other relevant hist ory. ALLERGIES: None. SOCIAL HISTORY: The patient is . He does not smoke or drink alcohol. MEDICAL ILLNESSES: 1. Obesity. 2. Diabetes mellitus. 3. Aortic valve replacement. 4. Hypertension. 5. Hyperlipidemia. 6. Coronary artery disease. 7. Status post coronary artery bypass graft. 8. Prostatic hypertrophy. 9. Peripheral neuropathy. 10. Anemia due to recurrent GI bleeding. 11. Past history of small bowel AVM, status post enteroscopy and heater probe therapy. 12. Past history of gastric ulcer bleeding. MEDICATIONS: List reviewed. SURGERIES: 1. Status post coronary artery bypass graft. 2. Status post left shoulder surgery. 3. Status post aortic valve replacement. 4. Enteroscopy in 2014. 5. Status post EGD and colonoscopy several times in the past. FAMILY HISTORY: Father, CVA. Mother and multiple members also have diabetes mellitus. Grandmother , heart disease. REVIEW OF SYSTEMS: Ten-point system review, SKEIN INSPECTOR: History of syncope yesterday morning. No history of chronic headache, no seizure disorder, no dizziness. Respiratory System: No history of chronic cough, hemoptysis, dyspnea. Cardiovascular System: No palpitation, no chest pain, no orthopnea or PND. Gastrointestinal: No abdominal pain, nausea, vomiting. History of black tarry stool over last couple of weeks. No hematochezia. Bowel movements are regular. Genitourinary: No dysuria, hematuria, or frequency of urination. Musculoskeletal: Unremarkable. Endocrine: Unremarkable. Hematological: Unremarkable. PHYSICAL EXAMINATION: GENERAL: The patient is awake, alert, and oriented to time, place, and person. VITAL SIGNS: Stable. Temperature on admission was 97.7 degrees Fahrenheit. Today, he has been spi [place]antana fever of 100.1 to 101.4. His pulse is 88, blood pressure is 149/65. HEENT: Conjunctivae clear. NECK: Supple. No adenitis or thyromegaly noted. CARDIOVASCULAR SYSTEM: First and second heart sounds normal. He has loud S3. LUNGS: Clear to auscultation. ABDOMEN: Soft to palpate. No organomegaly. No tenderness. No masses. EXTREMITIES: Reveal no edema. LABORATORY DATA: PT today 19.7, INR 1.6, PTT 88.6. Hemoglobin is 8.5 after 2 units of blood, hemat ocrit 26.2, MCV 96.9, platelet count 142,000, polymorphs 79, lymphocytes 11. Serum chemistries: So dium 140, potassium 4.7, chloride 112, bicarbonate 25, BUN is 33, creatinine 1.31, glucose 190, calc ium 8.2. CLINICAL IMPRESSION: 1. A 66-year-old male with a history of black tarry stool and anemia. His anemia is actu ally normocytic indicate acute blood loss. The patient has had gastrointestinal bleeding over the l ast several years since his aortic valve replacement in 2012. The patient has had multiple EGDs and colonoscopies in the past. He also had a capsule endoscopy revealing small arteriovenous malformat ion and subsequent endoscopy revealed a bleeding arteriovenous malformation and was cauterized. The patient presents with syncope and the etiology unclear at the present time. 2. Anemia due to blood loss. 3. Past history of gastric ulcer bleeding. 4. Past history of small bowel arteriovenous malformations bleeding. 5. Colon polyp. 6. Obesity. 7. Diabetes mellitus. 8. Hypertension. 9. Status post aortic valve replacement. 10. Status post coronary artery bypass graft. 11. Fever of unknown etiology. RECOMMENDATIONS: 1. Transfuse. 2. Possible EGD tomorrow if his fever comes down. I will hold on his EGD until his fever is back t o baseline.
[2017-01-05] MEDS: Enoxaparin Sodium 40 MG/0.4 ML SYRINGE SC SCH (08:03)
[2017-01-05] MEDS: Famotidine/PF 20 mg/2ml Vial SLOW IVP SCH ×2 (08:03→21:38)
[2017-01-05] MEDS: Aspirin 81 mg Enteric Coated Tablet PO SCH (08:03)
[2017-01-05] MEDS: Vancomycin HCl 1 GM in Premix Bag 1 BAG IVPB SCH ×2 (08:04→21:38)
--- NOTE | 2017-01-05 09:52 | PRG ---
DATE OF SERVICE: 01/05/2017 SUBJECTIVE: He apparently vomited this morning, but then was hungry enough to eat his breakfast. H is family states he had fever last night. PHYSICAL EXAMINATION: VITAL SIGNS: His temperature is currently 99.6, T-max is 101.4 at 07:30 last night, pulse 95, respi rations 16, O2 saturation 98% on 2 liters, blood pressure 161/68. GENERAL APPEARANCE: He is awake and alert, in no distress. HEENT: Unremarkable. NECK: No JVD. LUNGS: No crackles. CARDIAC: S1 and S2 regular. He has a little oozing from his right IJ surgical site. ABDOMEN: Soft, nontender. EXTREMITIES: No clubbing, cyanosis, or edema. LABORATORY DATA: Micro cultures showed no growth to date from the three cultures obtained on 2016. White blood cell count 6.3, hemoglobin 8.9, hematocrit 27.2, and platelet count 128. Sodium 139, potassium 4.7, chloride 111, CO2 20, BUN 26, creatinine 1.4, glucose 215. ASSESSMENT: 1. Fever - etiology not clear - chest x-ray yesterday showed no evidence of an infiltrate that I ca n see. 2. Status post syncopal episode at home. 3. Status post acute respiratory failure with prompt extubation afterwards. 4. History of aortic valve replacement. PLAN: He is currently on antibiotics. We are continuing to observe him; no new suggestions at this time.
--- NOTE | 2017-01-05 10:05 | PDOC.PN ---
- Subjective Encounter Start Date: 01/05/17 Encounter Start Time: 10:02 Subjective: severe YOUNG, emesis - Objective MAR Reviewed: Yes Vital Signs & Weight: Vital Signs (12 hours) Temp Pulse Resp BP Pulse Ox 01/05/17 07:25 99.6 F 91 18 155/69 H 97 01/05/17 06:52 95 16 98 01/05/17 04:00 99.6 F 98 18 161/68 H 96 01/04/17 22:54 97 01/04/17 22:51 94 L Weight Weight 240 lb 1.334 oz Most Recent Monitor Data Heart Rate from ECG 92 NIBP 121/63 NIBP BP-Mean 82 Respiration from ECG 19 SpO2 95 I&O: 01/04/17 01/05/17 01/06/17 06:59 06:59 06:59 Intake Total 3513.1 900 Output Total 3235 1175 Balance 278.1 -275 Result Diagrams: 01/05/17 05:27 01/05/17 05:27 Additional Labs: Accuchecks 01/05/17 01/05/17 01/04/17 05:27 02:05 17:10 POC Glucose 216 H 222 H 219 H Radiology Reviewed by me: Yes (cxr- no chf, infiltrate) EKG Reviewed by me: Yes (CT brain, no acute process- no bleeding) Phys Exam - Physical Examination Constitutional: NAD Neck: no JVD, supple Respiratory: clear to auscultation bilateral Cardiovascular: RRR, no significant murmur Gastrointestinal: soft, positive bowel sounds Musculoskeletal: edema present Neurological: non-focal Dx/Plan (1) Acute respiratory failure with hypoxia and hypercapnia Code(s): J96.01 - ACUTE RESPIRATORY FAILURE WITH HYPOXIA; J96.02 - ACUTE RESPIRATORY FAILURE WITH HYPERCAPNIA Status: Acute (2) H/O prosthetic aortic valve replacement Code(s): Z95.2 - PRESENCE OF PROSTHETIC HEART VALVE Status: Chronic (3) Anemia Code(s): D64.9 - ANEMIA, UNSPECIFIED Status: Acute Qualifiers: Anemia type: unspecified type Qualified Code(s): D64.9 - Anemia, unspecified (4) DM type 2 (diabetes mellitus, type 2) Status: Acute Qualifiers: Diabetes mellitus complication status: with kidney complications Diabetes mellitus complication detail: with chronic kidney disease Chronic kidney disease stage: stage 3 (moderate) (5) CAD (coronary artery disease) Code(s): I25.10 - ATHSCL HEART DISEASE OF [place] CORONARY ARTERY W/O ANG PCTRS Status: Acute Qualifiers: Coronary Disease-Associated Artery/Lesion type: [place] artery [place] vs. transplanted heart: [place] heart Associated angina: without angina Qualified Code(s): I25.10 - Atherosclerotic heart disease of [place] coronary artery without angina pectoris (6) HTN (hypertension) Code(s): I10 - ESSENTIAL (PRIMARY) HYPERTENSION Status: Chronic Qualifiers: Hypertension type: essential hypertension Qualified Code(s): I10 - Essential (primary) hypertension (7) Headache Code(s): R51 - HEADACHE Status: Acute Qualifiers: Headache type: unspecified Headache chronicity pattern: acute headache - Plan stat CT brain- no acute intracranial process -: cont anticoag -: blood , urine C&S neg, cont iv antibx- consider ID consult -: discuss with consultants * .
[2017-01-05] MEDS ORDERED: traMADol HCl 50 MG TAB PO SCH (10:15)
--- NOTE | 2017-01-05 10:34 | PDOC.CTH ---
Cardiology Progress Note - Subjective Reports nausea last night. Tolerated breakfast this morning. C/o severe headache this morning. Fever to 101.4 last night with no clear source. ROS otherwise negative. - Objective Vital Signs Temp Pulse Resp BP Pulse Ox 01/05/17 07:25 99.6 F 91 18 155/69 H 97 01/05/17 06:52 95 16 98 01/05/17 04:00 99.6 F 98 18 161/68 H 96 01/04/17 22:54 97 01/04/17 22:51 94 L Weight 240 lb 1.334 oz 01/04/17 01/05/17 01/06/17 06:59 06:59 06:59 Intake Total 3513.1 900 Output Total 3235 1175 Balance 278.1 -275 - Physical Examination General/Neuro: alert & oriented x3, NAD Neck: carotid US brisk, no JVD present Lungs: CTA, unlabored respirations Heart: PMI normal, RRR, other: (crisp metallic click) Abdomen: no HSM, NT/ND, soft Extremities: other: (2+ pulses, minimal edema) Other PE findings: Neuro: no focal motor defs - Telemetry Telemetry Rhythm: sinus rhythm - Labs Result Diagrams: 01/05/17 05:27 01/05/17 05:27 Troponin/CKMB CK-MB (CK-2) 7.2 ng/mL (0-6.6) H* 01/03/17 04:55 Troponin I 0.337 ng/mL (< 0.028) H* 01/03/17 07:39 - Assessment/Plan 1. syncope: likely secondary to hypovolemia. Stable vitals since transfusion. Continue to monitor. 2. anemia: unclear source. stable s/p transfusion. 3. AVR, mechanical: transitioned to lovenox with resumption of coumadin. Monitor INR to goal of 2.5-3.5 4. CKD, III: stable. Monitor on current meds. 5. CAD: stable. asymptomatic currently. Will follow from a distance. Please call with CV issues.
--- NOTE | 2017-01-05 13:08 | CT ---
HEAD CT NONCONTRAST: Indication: Severe headache. Anticoagulated patient. FINDINGS: There is age appropriate size of the ventricular system without evidence of midline shift. No intrac ranial hemorrhage or mass effect. There is mild chronic microvascular ischemic disease. Mild mucosal thickening within the paranasal sinuses is present. IMPRESSION: 1. No acute intracranial abnormalities. 2. Mild chronic microvascular ischemic disease. POS: [facility]
[2017-01-05] MEDS ORDERED: AFRIN NASAL MIST 15 ML BOT NS PRN (15:26)
[2017-01-05 15:49] LABS: PTT 46.3 SEC (22.9-36.1); Prothrombin Time 19.4 SEC (12.0-14.7)
[2017-01-05] MEDS: Warfarin Sodium 2 MG TAB PO SCH (16:31)
--- NOTE | 2017-01-05 16:40 | PDOC.EVN ---
Event Note - Event Note Event Note: for 1+ hour, not profuse. INR 1.6. have discussed with ENT. no packing ti off anticosg 24 hrs. talkrd with cardiology- DC asa, lovenox, warfarin. cont afrin NS, naries pressure. will check H&H q8h , transfuse if necessay. will start oiv fluids.
[2017-01-05] MEDS ORDERED: Oxymetazoline HCl 0.05% ( 15 ML ) NASAL PRN (16:49)
--- NOTE | 2017-01-05 19:35 | PRG ---
DATE OF SERVICE: 01/05/2017 HISTORY OF PRESENT ILLNESS: This is a 66-year-old with anemia, which has been recurrent o ines the last 3-4 years. The patient has a history of black tarry stool off and on. The patient has been transfused with 2 units of blood after admission. His blood count has been stable. He has be en running fevers to 101 yesterday. The etiology was unclear. Today, his fever is down to 19.6 deg aurelio Fahrenheit this morning and today at 11:00 a.m. he became afebrile. He has no stool yesterday or today. Blood count has been stable after transfusion. Today, WBC 6300, hemoglobin 8.9, hematocr it 27.2. PHYSICAL EXAMINATION: GENERAL: He is afebrile. He appears comfortable. VITAL SIGNS: Pulse is 94, blood pressure is 181/77. CARDIOVASCULAR: First and second heart sounds normal. LUNGS: Clear to auscultation. ABDOMEN: Soft to palpate. No organomegaly. No tenderness. No masses. CLINICAL IMPRESSION: 1. History of black tarry stool over the last 2 weeks off and on. 2. Anemia due to blood loss. PLAN: EGD tomorrow.
[2017-01-05] MEDS: Silodosin 8 MG CAP PO SCH (21:37)
[2017-01-05 22:00] LABS: Hematocrit 27.7 % (42.0-52.0)
[2017-01-05] MEDS: D5 1/2 NS w/10 mEq KCl 1,000 ML/1,000 ML BAG IV SCH (23:00)
[2017-01-06] MEDS: HumaLOG 300 UNITS/3 ML VIAL SC PRN ×3 (00:35→17:22)
[2017-01-06] MEDS: D5 1/2 NS w/10 mEq KCl 1,000 ML/1,000 ML BAG IV SCH (04:05)
[2017-01-06] MEDS: Piperacillin/Tazobactam 3.375 GM in Sodium Chloride 0.9% 100 ML IVPB SCH ×3 (05:34→17:21)
[2017-01-06 06:07] LABS: Hematocrit 26.7 % (42.0-52.0)
[2017-01-06 06:16] LABS: Prothrombin Time 19.5 SEC (12.0-14.7)
[2017-01-06] MEDS ORDERED: Ondansetron HCl/PF 4 MG/2 ML Vial ONE (06:24)
[2017-01-06] MEDS: Albuterol Sulfate 1.25 MG/3 ML NEB NEB SCH ×3 (07:12→22:28)
[2017-01-06] MEDS ORDERED: Succinylcholine Chloride 20 MG/ML 10 ml SYRINGE FS ONE (07:41)
[2017-01-06] MEDS ORDERED: Propofol 200 MG/20 ML VIAL ONE (07:41)
[2017-01-06] MEDS ORDERED: Lidocaine 1% PF 5 ML VIAL ONE (07:41)
[2017-01-06] MEDS ORDERED: Meperidine HCl/PF 25 MG/ML VIAL SLOW IVP PRN (08:05)
[2017-01-06] MEDS ORDERED: Promethazine HCl 25 MG/ML VIAL IM PRN (08:05)
[2017-01-06] MEDS ORDERED: Ondansetron HCl/PF 4 MG/2 ML Vial IVP PRN (08:05)
[2017-01-06] MEDS ORDERED: Promethazine HCl 25 MG/ML VIAL SLOW IVP PRN (08:05)
--- NOTE | 2017-01-06 08:16 | OP ---
DATE OF PROCEDURE 01/06/2017 SURGEON: Tarah Gonzalez M.D. OPERATIVE PROCEDURE: Esophagogastroduodenoscopy. PREOPERATIVE DIAGNOSIS: A 66-year-old male with melena and anemia due to blood loss. The patient is undergoing esophagogastroduodenoscopy. POSTOPERATIVE DIAGNOSES: Gastritis and multiple erythematous spots, mostly present gastritis than AVMs. At time of endoscopy, no sign of bleeding seen. PROCEDURE IN DETAIL: The patient was intubated and was given sedation by Anesthesia Department. The patient has been having persistent nausea and also gagging. Because of the above reasons it was felt it would be safer to intubate the patient to prevent any aspiration. The patient was found on his left lateral position. A bite block was placed. A [employer] video gastroscope under direct vision was passed down the oropharynx, past the gastroesophageal junction, into the stomach. The vocal cords appeared healthy. The esophageal mucosa appeared normal. The GE junction, no pathology seen. Upon entering the stomach, the patient was found to have fairly good amount of bile in the stomach which was suctioned out. Retroflexion failed to show any lesions in the fundus or cardia. Over the proximal gastric body the patient had multiple erythematous spots, most likely representing gastritis. There was also multiple linear erythematous streaks in the gastric antrum. This was thought to represent most likely gastritis and AVMs. There area was not cauterized because of the risk of bleeding as he is on anticoagulation. The duodenal bulb and descending duodenum, no pathology seen. The stomach was decompressed and the scope removed. RECOMMENDATIONS: 1. Serial H\T\H. 2.I he has recurrence of bleeding, obtain a tagged RBC scan. 3. Symptomatic treatment. SATYA
[2017-01-06] MEDS: Vancomycin HCl 1 GM in Premix Bag 1 BAG IVPB SCH ×2 (08:48→21:26)
[2017-01-06] MEDS: Famotidine/PF 20 mg/2ml Vial SLOW IVP SCH ×2 (08:48→21:27)
--- NOTE | 2017-01-06 10:24 | PDOC.PN ---
- Subjective Encounter Start Date: 01/06/17 Encounter Start Time: 10:22 Subjective: no nosebleed this am - Objective MAR Reviewed: Yes Vital Signs & Weight: Vital Signs (12 hours) Temp Pulse Resp BP Pulse Ox 01/06/17 08:45 98.2 F 81 18 183/82 H 01/06/17 04:00 98.7 F 85 18 130/58 L 93 L 01/06/17 00:49 91 L 01/06/17 00:00 98.3 F 87 18 162/69 H 94 L Weight Weight 235 lb 8 oz Most Recent Monitor Data Heart Rate from ECG 92 NIBP 121/63 NIBP BP-Mean 82 Respiration from ECG 19 SpO2 95 I&O: 01/05/17 01/06/17 01/07/17 06:59 06:59 06:59 Intake Total 900 914 Output Total 1175 950 Balance -275 -36 Result Diagrams: 01/06/17 05:44 01/05/17 05:27 Additional Labs: Accuchecks 01/06/17 01/06/17 01/06/17 07:25 05:45 00:18 POC Glucose 215 H 239 H 246 H 01/05/17 01/05/17 01/05/17 20:31 16:39 11:51 POC Glucose 227 H 233 H 281 H Phys Exam - Physical Examination Constitutional: NAD Neck: no JVD Respiratory: clear to auscultation bilateral Cardiovascular: RRR crisp valve sounds Gastrointestinal: soft Musculoskeletal: edema present Dx/Plan (1) Acute respiratory failure with hypoxia and hypercapnia Code(s): J96.01 - ACUTE RESPIRATORY FAILURE WITH HYPOXIA; J96.02 - ACUTE RESPIRATORY FAILURE WITH HYPERCAPNIA Status: Acute (2) H/O prosthetic aortic valve replacement Code(s): Z95.2 - PRESENCE OF PROSTHETIC HEART VALVE Status: Chronic (3) Anemia Code(s): D64.9 - ANEMIA, UNSPECIFIED Status: Acute Qualifiers: Anemia type: unspecified type Qualified Code(s): D64.9 - Anemia, unspecified (4) DM type 2 (diabetes mellitus, type 2) Status: Acute Qualifiers: Diabetes mellitus complication status: with kidney complications Diabetes mellitus complication detail: with chronic kidney disease Chronic kidney disease stage: stage 3 (moderate) (5) CAD (coronary artery disease) Code(s): I25.10 - ATHSCL HEART DISEASE OF [place] CORONARY ARTERY W/O ANG PCTRS Status: Acute Qualifiers: Coronary Disease-Associated Artery/Lesion type: [place] artery [place] vs. transplanted heart: [place] heart Associated angina: without angina Qualified Code(s): I25.10 - Atherosclerotic heart disease of [place] coronary artery without angina pectoris (6) HTN (hypertension) Code(s): I10 - ESSENTIAL (PRIMARY) HYPERTENSION Status: Chronic Qualifiers: Hypertension type: essential hypertension Qualified Code(s): I10 - Essential (primary) hypertension (7) Headache Code(s): R51 - HEADACHE Status: Acute Qualifiers: Headache type: unspecified Headache chronicity pattern: acute headache (8) Epistaxis Code(s): R04.0 - EPISTAXIS Status: Acute - Plan epistaxis stopped off asa,lovenox -: discuss with cardiolgy -: post EGD - no active bleeding, pos for AVMs * .
--- NOTE | 2017-01-06 10:47 | PRG ---
DATE OF SERVICE: 01/06/2017 The patient is doing reasonably well. He had EGD today. PHYSICAL EXAMINATION: VITAL SIGNS: T-max 100.3, currently 98.7, pulse 85, respirations 18, O2 sat 93%, blood pressure 150 /58. HEENT: Unremarkable. NECK: No JVD. CHEST: Clear. CARDIAC: S1, S2 regular. ABDOMEN: Soft. EXTREMITIES: No edema. LABORATORY DATA: White blood cell count 6.3, hematocrit 26.7, platelet count 128. No chemistry was done today. ASSESSMENT: 1. Nasal bleeding yesterday. 2. History intestinal bleeding on Coumadin. 3. Prosthetic aortic valve. 4. Fever at the time of admission with no occult infiltrate on x-ray. PLAN: For the time being, he is continuing antibiotics, although I would recommend changing this to oral therapy if 48-hour cultures come back negative. No further recommendations at this time.
[2017-01-06] MEDS: Metoclopramide HCl 10 MG/2 ML VIAL IVP SCH ×2 (14:17→22:43)
--- NOTE | 2017-01-06 14:27 | PDOC.CTH ---
Cardiology Progress Note - Subjective Discussed with Dr. Lynch. No further epistaxis off lovenox. Will plan on resumption of coumadin and close monitoring till INR is therapeutic. ROS otherwise negative. - Objective Vital Signs Temp Pulse Resp BP Pulse Ox 01/06/17 12:20 96 01/06/17 12:00 98 F 80 20 139/94 H 01/06/17 08:45 98.2 F 81 18 183/82 H 01/06/17 04:00 98.7 F 85 18 130/58 L 93 L Weight 235 lb 8 oz 01/05/17 01/06/17 01/07/17 06:59 06:59 06:59 Intake Total 900 914 Output Total 1175 950 Balance -275 -36 - Physical Examination General/Neuro: alert & oriented x3, NAD Neck: carotid US brisk, no JVD present Lungs: CTA, unlabored respirations Heart: PMI normal, RRR, other: (crisp click) Abdomen: no HSM, NT/ND, soft Extremities: other: (2+ pulses, no edema) Other PE findings: Neuro: no focal motor defs - Telemetry Telemetry Rhythm: sinus rhythm - Labs Result Diagrams: 01/06/17 05:44 01/05/17 05:27 Troponin/CKMB CK-MB (CK-2) 7.2 ng/mL (0-6.6) H* 01/03/17 04:55 Troponin I 0.337 ng/mL (< 0.028) H* 01/03/17 07:39 - Assessment/Plan 1. syncope: likely secondary to hypovolemia. Stable vitals since transfusion. Continue to monitor. 2. anemia: unclear source. stable s/p transfusion. 3. AVR, mechanical: monitor with resumption of coumadin. Monitor INR to goal of 2.5-3.5. Will remain off lovenox due to epistaxis. 4. CKD, III: stable. Monitor on current meds. 5. CAD: stable. asymptomatic currently.
[2017-01-06 15:13] LABS: Hematocrit 26.7 % (42.0-52.0)
[2017-01-06 20:51] LABS: Vancomycin, Trough 14.2 ug/mL
[2017-01-06] MEDS: Silodosin 8 MG CAP PO SCH (22:44)
[2017-01-07] MEDS: Piperacillin/Tazobactam 3.375 GM in Sodium Chloride 0.9% 100 ML IVPB SCH ×4 (00:19→19:09)
[2017-01-07 05:39] LABS: Prothrombin Time 17.6 SEC (12.0-14.7)
[2017-01-07] MEDS: Metoclopramide HCl 10 MG/2 ML VIAL IVP SCH ×3 (05:56→22:25)
[2017-01-07] MEDS: Albuterol Sulfate 1.25 MG/3 ML NEB NEB SCH ×3 (06:40→22:53)
--- NOTE | 2017-01-07 09:19 | PDOC.PN ---
- Subjective Encounter Start Date: 01/07/17 Encounter Start Time: 09:12 Subjective: no bleeding etc - Objective MAR Reviewed: Yes Vital Signs & Weight: Vital Signs (12 hours) Temp Pulse Resp BP Pulse Ox 01/07/17 04:00 98.1 F 88 20 146/78 H 93 L 01/07/17 00:00 99.3 F 88 18 138/60 92 L Weight Weight 233 lb Most Recent Monitor Data Heart Rate from ECG 92 NIBP 121/63 NIBP BP-Mean 82 Respiration from ECG 19 SpO2 95 I&O: 01/06/17 01/07/17 01/08/17 06:59 06:59 06:59 Intake Total 914 1780 Output Total 950 1200 Balance -36 580 Result Diagrams: 01/06/17 14:56 01/05/17 05:27 Additional Labs: Accuchecks 01/07/17 01/06/17 01/06/17 06:13 20:04 17:08 POC Glucose 191 H 234 H 175 H 01/06/17 01/06/17 11:33 07:25 POC Glucose 226 H 215 H Phys Exam - Physical Examination Constitutional: NAD Neck: no JVD Respiratory: clear to auscultation bilateral Cardiovascular: RRR crisp valve sounds Gastrointestinal: soft Musculoskeletal: edema present Dx/Plan (1) Acute respiratory failure with hypoxia and hypercapnia Code(s): J96.01 - ACUTE RESPIRATORY FAILURE WITH HYPOXIA; J96.02 - ACUTE RESPIRATORY FAILURE WITH HYPERCAPNIA Status: Acute (2) H/O prosthetic aortic valve replacement Code(s): Z95.2 - PRESENCE OF PROSTHETIC HEART VALVE Status: Chronic (3) Anemia Code(s): D64.9 - ANEMIA, UNSPECIFIED Status: Acute Qualifiers: Anemia type: unspecified type Qualified Code(s): D64.9 - Anemia, unspecified (4) DM type 2 (diabetes mellitus, type 2) Status: Acute Qualifiers: Diabetes mellitus complication status: with kidney complications Diabetes mellitus complication detail: with chronic kidney disease Chronic kidney disease stage: stage 3 (moderate) (5) CAD (coronary artery disease) Code(s): I25.10 - ATHSCL HEART DISEASE OF [place] CORONARY ARTERY W/O ANG PCTRS Status: Acute Qualifiers: Coronary Disease-Associated Artery/Lesion type: [place] artery [place] vs. transplanted heart: [place] heart Associated angina: without angina Qualified Code(s): I25.10 - Atherosclerotic heart disease of [place] coronary artery without angina pectoris (6) HTN (hypertension) Code(s): I10 - ESSENTIAL (PRIMARY) HYPERTENSION Status: Chronic Qualifiers: Hypertension type: essential hypertension Qualified Code(s): I10 - Essential (primary) hypertension (7) Headache Code(s): R51 - HEADACHE Status: Acute Qualifiers: Headache type: unspecified Headache chronicity pattern: acute headache (8) Epistaxis Code(s): R04.0 - EPISTAXIS Status: Resolved - Plan current plan-reinstitute coumadin, monitor PT/INR , target 2.5. . no asa, -: lovenox due to epistaxis, etc. cont in hospital til therapeutic due to -: risk of bleeding as INR increases * .
[2017-01-07] MEDS: Famotidine/PF 20 mg/2ml Vial SLOW IVP SCH ×2 (09:34→21:00)
[2017-01-07] MEDS: Vancomycin HCl 1 GM in Premix Bag 1 BAG IVPB SCH ×2 (09:35→21:01)
--- NOTE | 2017-01-07 09:50 | PRG ---
DATE OF SERVICE: 01/07/2017 The patient is doing well, had no complaints. PHYSICAL EXAMINATION: VITAL SIGNS: Temperature 98.1, pulse 80, respirations 20, O2 sat 93%, blood pressure 146/78. HEENT: Unremarkable. NECK: No JVD. CHEST: Clear to auscultation without wheezing. CARDIAC: S1 and S2 regular. ABDOMEN: Soft. EXTREMITIES: No edema. LABORATORY DATA: INR 1.4. ASSESSMENT: 1. Status post acute respiratory failure requiring mechanical ventilation. 2. Chronically anticoagulated for prosthetic aortic valve. 3. 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 PLAN: I have discussed with Dr. Lynch. The patient is restarting anticoagulation. I have nothing further to offer in the management of this patient. He was started on antibiotics several days ago for indications that are not clear to me. So far cultures are negative, so I would advocate stoppin g the antibiotics.
[2017-01-07] MEDS: HumaLOG 300 UNITS/3 ML VIAL SC PRN ×2 (12:52→19:04)
[2017-01-07] MEDS: Warfarin Sodium 10 MG TAB PO SCH (19:03)
[2017-01-07] MEDS: Acetaminophen 325 MG TAB PO PRN (21:01)
[2017-01-07] MEDS: Silodosin 8 MG CAP PO SCH (21:01)
[2017-01-08] MEDS: Piperacillin/Tazobactam 3.375 GM in Sodium Chloride 0.9% 100 ML IVPB SCH ×2 (00:33→06:03)
--- NOTE | 2017-01-08 00:55 | PRG ---
DATE OF SERVICE: 01/07/2017 SUBJECTIVE: This is a 66-year-old, male with coronary artery disease , status post aortic valve replacement and also recurrent anemia. The patient was hospitalized over the weekend because of respiratory distress and a fainting spell. The patient has had black tarry stool off and on. Interestingly, since admission, he has had no more stool. He had an EGD yesterday, which revealed gastritis and gastric AVM. The patient has been on Coumadin which was started back again. The patient was on IV Reglan yesterday because of persistent nausea and vomiting. He appears clinically much better. He had no more nausea. He is also eating better. He has no abdominal pain, no nausea, no vomiting. The patient has had at least 2 or 3 colonoscopies, and the last one was done in 2013 and 2014. The patient has had bleeding AVMs off and on ever since he has been on Coumadin since 2012. Blood count has been stable. It is not dropping anymore. Over the last 48 hours, his blood count is stable around 8.7 to 8.9, 9.1, etc. OBJECTIVE: GENERAL: He is obese, appears comfortable. VITAL SIGNS: Stable. He is afebrile today at 98.1 degrees Fahrenheit, pulse is 88, blood pressure 146/78. CARDIOVASCULAR: First and second heart sounds normal. LUNGS: Within normal limits. ABDOMEN: Soft to palpate. No organomegaly. No tenderness. No masses. LABORATORY DATA: Hemoglobin 8.7, hematocrit 26.7, MCV, current platelet count 150,000. His Chem-7 is not done, but his glucose is 277. CLINICAL IMPRESSION: 1. Nausea and vomiting, possibly representing gastroparesis and is doing well on Reglan. 2. Fever, unknown etiology, but he is afebrile, and blood cultures were negative. 3. Melena, anemia due to blood loss, most likely from arteriovenous malformations. RECOMMENDATIONS: 1. Follow up H\T\H. 2. If the patient has recurrence of black tarry stool, consider tagged RBC scan . At the present time, no need for colonoscopy. From a GI standpoint, I did no more recommendations and I will sign off from today. [facility]
[2017-01-08 05:57] LABS: Prothrombin Time 16.8 SEC (12.0-14.7)
[2017-01-08] MEDS: Albuterol Sulfate 1.25 MG/3 ML NEB NEB SCH ×3 (05:58→19:20)
[2017-01-08] MEDS: Metoclopramide HCl 10 MG/2 ML VIAL IVP SCH ×3 (06:03→21:18)
[2017-01-08] MEDS: Vancomycin HCl 1 GM in Premix Bag 1 BAG IVPB SCH (09:01)
[2017-01-08] MEDS: Famotidine/PF 20 mg/2ml Vial SLOW IVP SCH ×2 (09:01→21:18)
[2017-01-08] MEDS ORDERED: traMADol HCl 50 MG TAB PO PRN (10:26)
[2017-01-08] MEDS ORDERED: Bisacodyl 5 MG TAB PO PRN (11:43)
--- NOTE | 2017-01-08 11:45 | PDOC.PN ---
- Subjective Encounter Start Date: 01/08/17 Encounter Start Time: 11:44 Patient seen and examined. No new complaints. No overnight events c/o constipation - Objective MAR Reviewed: Yes Vital Signs & Weight: Vital Signs (12 hours) Temp Pulse Resp BP Pulse Ox 01/08/17 11:39 98.6 F 83 16 177/79 H 92 L 01/08/17 08:00 99.0 F 92 18 147/67 H 92 L 01/08/17 04:25 98.0 F 84 18 188/79 H 92 L 01/08/17 00:30 98.1 F 84 16 173/74 H 95 Weight Weight 229 lb 1.6 oz Most Recent Monitor Data Heart Rate from ECG 92 NIBP 121/63 NIBP BP-Mean 82 Respiration from ECG 19 SpO2 95 I&O: 01/07/17 01/08/17 01/09/17 06:59 06:59 06:59 Intake Total 1780 600 Output Total 1200 100 Balance 580 500 Result Diagrams: 01/06/17 14:56 01/05/17 05:27 Additional Labs: Accuchecks 01/08/17 01/07/17 01/07/17 07:08 23:57 18:05 POC Glucose 198 H 202 H 269 H 01/07/17 12:20 POC Glucose 277 H Phys Exam - Physical Examination Constitutional: NAD HEENT: PERRLA Neck: no JVD Respiratory: no wheezing Cardiovascular: RRR click heard Gastrointestinal: non-tender Musculoskeletal: pulses present Neurological: normal sensation Psychiatric: A&O x 3 Dx/Plan (1) Constipation Code(s): K59.00 - CONSTIPATION, UNSPECIFIED Status: Acute (2) Acute respiratory failure with hypoxia and hypercapnia Code(s): J96.01 - ACUTE RESPIRATORY FAILURE WITH HYPOXIA; J96.02 - ACUTE RESPIRATORY FAILURE WITH HYPERCAPNIA Status: Acute (3) Anemia Code(s): D64.9 - ANEMIA, UNSPECIFIED Status: Acute Qualifiers: Anemia type: unspecified type Qualified Code(s): D64.9 - Anemia, unspecified Comment: due to acute blood loss (4) CAD (coronary artery disease) Code(s): I25.10 - ATHSCL HEART DISEASE OF [place] CORONARY ARTERY W/O ANG PCTRS Status: Acute Qualifiers: Coronary Disease-Associated Artery/Lesion type: [place] artery [place] vs. transplanted heart: [place] heart Associated angina: without angina Qualified Code(s): I25.10 - Atherosclerotic heart disease of [place] coronary artery without angina pectoris (5) DM type 2 (diabetes mellitus, type 2) Status: Acute Qualifiers: Diabetes mellitus complication status: with kidney complications Diabetes mellitus complication detail: with chronic kidney disease Chronic kidney disease stage: stage 3 (moderate) (6) Headache Code(s): R51 - HEADACHE Status: Acute Qualifiers: Headache type: unspecified Headache chronicity pattern: acute headache (7) H/O prosthetic aortic valve replacement Code(s): Z95.2 - PRESENCE OF PROSTHETIC HEART VALVE Status: Chronic (8) HTN (hypertension) Code(s): I10 - ESSENTIAL (PRIMARY) HYPERTENSION Status: Chronic Qualifiers: Hypertension type: essential hypertension Qualified Code(s): I10 - Essential (primary) hypertension (9) Epistaxis Code(s): R04.0 - EPISTAXIS Status: Resolved (10) Gastric AVM Code(s): Q27.33 - ARTERIOVENOUS MALFORMATION OF DIGESTIVE SYSTEM VESSEL Status : Acute (11) Gastritis Code(s): K29.70 - GASTRITIS, UNSPECIFIED, WITHOUT BLEEDING Status: Acute - Plan * f/u dr barker plan * f/u inr * d/c when inr 2.5 * monitor h/h
[2017-01-08] MEDS: HumaLOG 300 UNITS/3 ML VIAL SC PRN ×2 (13:43→17:38)
[2017-01-08] MEDS: Warfarin Sodium 10 MG TAB PO SCH (17:38)
[2017-01-08] MEDS: Docusate 100 MG CAP PO SCH (21:13)
[2017-01-08] MEDS: Gabapentin 300 MG CAP PO SCH (21:15)
[2017-01-08] MEDS: Silodosin 8 MG CAP PO SCH (21:15)
[2017-01-08] MEDS: Acetaminophen 325 MG TAB PO PRN (21:18)
[2017-01-09 05:40] LABS: #Eosinphils 0.2 thou/uL (0.0-0.7); #Lymphocytes 0.6 thou/uL (1.20-3.40); #Monocytes 0.4 thou/uL (0.11-0.59); #Neutrophils 3.2 thou/uL (1.40-6.50); %Basophils 0.8 % (0.0-1.0); %Eosinophils 4.9 % (0.0-10.0); %Lymphocytes 13.4 % (21.0-51.0); %Monocytes 8.8 % (0.0-10.0); Mean Platelet Volume 7.7 fL (7.4-10.4); Red Blood Cell (RBC) Count 3.05 mill/uL (4.70-6.10); White Blood Cell (WBC) Count 4.5 thou/uL (4.8-10.8)
[2017-01-09] MEDS: Metoclopramide HCl 10 MG/2 ML VIAL IVP SCH ×3 (05:41→21:42)
[2017-01-09 05:46] LABS: Prothrombin Time 19.6 SEC (12.0-14.7)
[2017-01-09 06:05] LABS: Anion Gap 11 mmol/L (10-20); BUN (Urea Nitrogen) 20 mg/dL (8.4-25.7); Calc. Creatinine Clearance 88 mL/min (70-130); Carbon Dioxide 26 mmol/L (23-31); Chloride 104 mmol/L (98-107); Estimated GFR-MDRD 59
[2017-01-09] MEDS: Albuterol Sulfate 1.25 MG/3 ML NEB NEB SCH (07:40)
[2017-01-09] MEDS: Famotidine/PF 20 mg/2ml Vial SLOW IVP SCH ×2 (08:15→21:42)
[2017-01-09] MEDS: Docusate 100 MG CAP PO SCH ×2 (08:15→21:42)
[2017-01-09] MEDS: Gabapentin 300 MG CAP PO SCH ×2 (08:15→21:42)
[2017-01-09] MEDS ORDERED: Albuterol Sulfate 1.25 MG/3 ML NEB NEB PRN (09:06)
[2017-01-09] MEDS ORDERED: Potassium Chloride 20 MEQ TAB PO SCH (11:30)
--- NOTE | 2017-01-09 11:57 | EKG ---
Test Reason : Blood Pressure : / mmHG Vent. Rate : 101 BPM Atrial Rate : 101 BPM P-R Int : 210 ms QRS Dur : 114 ms QT Int : 360 ms P-R-T Axes : 059 -19 128 degrees QTc Int : 466 ms Sinus tachycardia with 1st degree A-V block Inferior infarct , age undetermined Abnormal ECG Confirmed by GINO JOHNSON, LESA ([id number]), publishing editor SANDI WYNN ([id number]) on 01/09/2017 11:57:28 AM Referred By: Confirmed By:LESA CHRISTIAN MD
[2017-01-09] MEDS: HumaLOG 300 UNITS/3 ML VIAL SC PRN ×2 (12:58→18:44)
--- NOTE | 2017-01-09 13:30 | PDOC.PN ---
- Subjective Encounter Start Date: 01/09/17 Encounter Start Time: 13:29 Patient seen and examined. No new complaints. No overnight events - Objective MAR Reviewed: Yes Vital Signs & Weight: Vital Signs (12 hours) Temp Pulse Resp BP BP Pulse Ox 01/09/17 12:00 98.3 F 79 18 176/78 H 93 L 01/09/17 08:11 98.2 F 85 18 134/61 92 L 01/09/17 08:00 98.2 F 85 18 92 L 01/09/17 04:00 98.6 F 79 18 147/67 H 93 L Weight Weight 226 lb 11.2 oz Most Recent Monitor Data Heart Rate from ECG 92 NIBP 121/63 NIBP BP-Mean 82 Respiration from ECG 19 SpO2 95 I&O: 01/08/17 01/09/17 01/10/17 06:59 06:59 06:59 Intake Total 600 1060 Output Total 100 1100 Balance 500 -40 Result Diagrams: 01/09/17 05:08 01/09/17 05:08 Additional Labs: Accuchecks 01/09/17 01/09/17 01/09/17 11:11 05:39 00:48 POC Glucose 366 H 189 H 201 H 01/08/17 17:07 POC Glucose 201 H Phys Exam - Physical Examination Constitutional: NAD HEENT: PERRLA Neck: no JVD Respiratory: no rales Cardiovascular: no significant murmur Gastrointestinal: no distention Musculoskeletal: pulses present Neurological: moves all 4 limbs Psychiatric: A&O x 3 Dx/Plan (1) Constipation Code(s): K59.00 - CONSTIPATION, UNSPECIFIED Status: Acute (2) Acute respiratory failure with hypoxia and hypercapnia Code(s): J96.01 - ACUTE RESPIRATORY FAILURE WITH HYPOXIA; J96.02 - ACUTE RESPIRATORY FAILURE WITH HYPERCAPNIA Status: Acute (3) Anemia Code(s): D64.9 - ANEMIA, UNSPECIFIED Status: Acute Qualifiers: Anemia type: unspecified type Qualified Code(s): D64.9 - Anemia, unspecified Comment: due to acute blood loss (4) CAD (coronary artery disease) Code(s): I25.10 - ATHSCL HEART DISEASE OF [place] CORONARY ARTERY W/O ANG PCTRS Status: Acute Qualifiers: Coronary Disease-Associated Artery/Lesion type: [place] artery [place] vs. transplanted heart: [place] heart Associated angina: without angina Qualified Code(s): I25.10 - Atherosclerotic heart disease of [place] coronary artery without angina pectoris (5) DM type 2 (diabetes mellitus, type 2) Status: Acute Qualifiers: Diabetes mellitus complication status: with kidney complications Diabetes mellitus complication detail: with chronic kidney disease Chronic kidney disease stage: stage 3 (moderate) (6) Headache Code(s): R51 - HEADACHE Status: Acute Qualifiers: Headache type: unspecified Headache chronicity pattern: acute headache (7) H/O prosthetic aortic valve replacement Code(s): Z95.2 - PRESENCE OF PROSTHETIC HEART VALVE Status: Chronic (8) HTN (hypertension) Code(s): I10 - ESSENTIAL (PRIMARY) HYPERTENSION Status: Chronic Qualifiers: Hypertension type: essential hypertension Qualified Code(s): I10 - Essential (primary) hypertension (9) Epistaxis Code(s): R04.0 - EPISTAXIS Status: Resolved (10) Gastric AVM Code(s): Q27.33 - ARTERIOVENOUS MALFORMATION OF DIGESTIVE SYSTEM VESSEL Status : Acute (11) Gastritis Code(s): K29.70 - GASTRITIS, UNSPECIFIED, WITHOUT BLEEDING Status: Acute - Plan * f/u inr * doing well * cont current mx
[2017-01-09] MEDS: Warfarin Sodium 10 MG TAB PO SCH (18:31)
[2017-01-09] MEDS: Silodosin 8 MG CAP PO SCH (21:42)
[2017-01-10] MEDS: Metoclopramide HCl 10 MG/2 ML VIAL IVP SCH ×3 (05:41→21:20)
[2017-01-10 06:47] LABS: Prothrombin Time 21.4 SEC (12.0-14.7)
[2017-01-10] MEDS: HumaLOG 300 UNITS/3 ML VIAL SC PRN ×4 (07:45→18:16)
[2017-01-10] MEDS: Famotidine/PF 20 mg/2ml Vial SLOW IVP SCH ×2 (09:32→21:20)
[2017-01-10] MEDS: Gabapentin 300 MG CAP PO SCH ×2 (09:32→21:20)
[2017-01-10] MEDS: Docusate 100 MG CAP PO SCH ×2 (09:32→21:20)
--- NOTE | 2017-01-10 17:11 | PDOC.PN ---
- Subjective Encounter Start Date: 01/10/17 Encounter Start Time: 17:10 Patient seen and examined. No new complaints. No overnight events - Objective MAR Reviewed: Yes Vital Signs & Weight: Vital Signs (12 hours) Temp Pulse Resp BP BP Pulse Ox 01/10/17 12:01 97.5 F L 77 18 146/67 H 94 L 01/10/17 09:40 137/75 01/10/17 08:00 97.7 F 81 20 95 01/10/17 07:49 97.7 F 81 20 180/77 H 95 Weight Weight 226 lb 11.2 oz Most Recent Monitor Data Heart Rate from ECG 92 NIBP 121/63 NIBP BP-Mean 82 Respiration from ECG 19 SpO2 95 I&O: 01/09/17 01/10/17 01/11/17 06:59 06:59 06:59 Intake Total 1060 1440 Output Total 1100 200 Balance -40 1240 Result Diagrams: 01/09/17 05:08 01/09/17 05:08 Additional Labs: Accuchecks 01/10/17 01/09/17 01/09/17 06:14 23:46 17:06 POC Glucose 231 H 217 H 339 H Phys Exam - Physical Examination Constitutional: NAD HEENT: PERRLA Neck: no JVD Respiratory: no rales Cardiovascular: no significant murmur Gastrointestinal: non-tender Musculoskeletal: pulses present Neurological: moves all 4 limbs Psychiatric: A&O x 3 Dx/Plan (1) Constipation Code(s): K59.00 - CONSTIPATION, UNSPECIFIED Status: Acute (2) Acute respiratory failure with hypoxia and hypercapnia Code(s): J96.01 - ACUTE RESPIRATORY FAILURE WITH HYPOXIA; J96.02 - ACUTE RESPIRATORY FAILURE WITH HYPERCAPNIA Status: Acute (3) Anemia Code(s): D64.9 - ANEMIA, UNSPECIFIED Status: Acute Qualifiers: Anemia type: unspecified type Qualified Code(s): D64.9 - Anemia, unspecified Comment: due to acute blood loss (4) CAD (coronary artery disease) Code(s): I25.10 - ATHSCL HEART DISEASE OF [place] CORONARY ARTERY W/O ANG PCTRS Status: Acute Qualifiers: Coronary Disease-Associated Artery/Lesion type: [place] artery [place] vs. transplanted heart: [place] heart Associated angina: without angina Qualified Code(s): I25.10 - Atherosclerotic heart disease of [place] coronary artery without angina pectoris (5) DM type 2 (diabetes mellitus, type 2) Status: Acute Qualifiers: Diabetes mellitus complication status: with kidney complications Diabetes mellitus complication detail: with chronic kidney disease Chronic kidney disease stage: stage 3 (moderate) (6) Headache Code(s): R51 - HEADACHE Status: Acute Qualifiers: Headache type: unspecified Headache chronicity pattern: acute headache (7) H/O prosthetic aortic valve replacement Code(s): Z95.2 - PRESENCE OF PROSTHETIC HEART VALVE Status: Chronic (8) HTN (hypertension) Code(s): I10 - ESSENTIAL (PRIMARY) HYPERTENSION Status: Chronic Qualifiers: Hypertension type: essential hypertension Qualified Code(s): I10 - Essential (primary) hypertension (9) Epistaxis Code(s): R04.0 - EPISTAXIS Status: Resolved (10) Gastric AVM Code(s): Q27.33 - ARTERIOVENOUS MALFORMATION OF DIGESTIVE SYSTEM VESSEL Status : Acute (11) Gastritis Code(s): K29.70 - GASTRITIS, UNSPECIFIED, WITHOUT BLEEDING Status: Acute - Plan * f/u inr * cont current mx
[2017-01-10] MEDS: Warfarin Sodium 10 MG TAB PO SCH (18:14)
[2017-01-10] MEDS: Silodosin 8 MG CAP PO SCH (21:20)
[2017-01-11] MEDS: HumaLOG 300 UNITS/3 ML VIAL SC PRN ×3 (00:47→13:01)
[2017-01-11] MEDS: Metoclopramide HCl 10 MG/2 ML VIAL IVP SCH (04:53)
[2017-01-11 08:36] LABS: Prothrombin Time 24.5 SEC (12.0-14.7)
[2017-01-11] MEDS: Famotidine/PF 20 mg/2ml Vial SLOW IVP SCH (09:29)
[2017-01-11] MEDS: Gabapentin 300 MG CAP PO SCH (09:30)
[2017-01-11] MEDS: Docusate 100 MG CAP PO SCH (09:32)
[2017-01-11 11:55] VITALS: BP 180/82; TEMP 97.5
--- NOTE | 2017-01-11 12:24 | PDOC.PN ---
- Subjective Encounter Start Date: 01/11/17 Encounter Start Time: 12:22 Patient seen and examined. No new complaints. No overnight events - Objective MAR Reviewed: Yes Vital Signs & Weight: Vital Signs (12 hours) Temp Pulse Resp BP BP Pulse Ox 01/11/17 11:53 97.5 F L 75 20 180/82 H 01/11/17 08:00 97.3 F L 76 18 95 01/11/17 07:29 97.3 F L 76 18 138/70 95 01/11/17 04:00 85 18 145/64 H Weight Weight 227 lb Most Recent Monitor Data Heart Rate from ECG 92 NIBP 121/63 NIBP BP-Mean 82 Respiration from ECG 19 SpO2 95 I&O: 01/10/17 01/11/17 01/12/17 06:59 06:59 06:59 Intake Total 1440 1320 Output Total 200 1600 Balance 1240 -280 Result Diagrams: 01/09/17 05:08 01/09/17 05:08 Additional Labs: Accuchecks 01/11/17 01/11/17 01/11/17 11:42 06:24 00:39 POC Glucose 231 H 289 H 362 H 01/10/17 01/10/17 18:08 12:11 POC Glucose 285 H 324 H Phys Exam - Physical Examination Constitutional: NAD HEENT: PERRLA Neck: no JVD Respiratory: no rales Cardiovascular: no significant murmur Gastrointestinal: non-tender Musculoskeletal: pulses present Neurological: normal sensation Psychiatric: A&O x 3 Dx/Plan (1) Constipation Code(s): K59.00 - CONSTIPATION, UNSPECIFIED Status: Acute (2) Acute respiratory failure with hypoxia and hypercapnia Code(s): J96.01 - ACUTE RESPIRATORY FAILURE WITH HYPOXIA; J96.02 - ACUTE RESPIRATORY FAILURE WITH HYPERCAPNIA Status: Acute (3) Anemia Code(s): D64.9 - ANEMIA, UNSPECIFIED Status: Acute Qualifiers: Anemia type: unspecified type Qualified Code(s): D64.9 - Anemia, unspecified Comment: due to acute blood loss (4) CAD (coronary artery disease) Code(s): I25.10 - ATHSCL HEART DISEASE OF [place] CORONARY ARTERY W/O ANG PCTRS Status: Acute Qualifiers: Coronary Disease-Associated Artery/Lesion type: [place] artery [place] vs. transplanted heart: [place] heart Associated angina: without angina Qualified Code(s): I25.10 - Atherosclerotic heart disease of [place] coronary artery without angina pectoris (5) DM type 2 (diabetes mellitus, type 2) Status: Acute Qualifiers: Diabetes mellitus complication status: with kidney complications Diabetes mellitus complication detail: with chronic kidney disease Chronic kidney disease stage: stage 3 (moderate) (6) Headache Code(s): R51 - HEADACHE Status: Acute Qualifiers: Headache type: unspecified Headache chronicity pattern: acute headache (7) H/O prosthetic aortic valve replacement Code(s): Z95.2 - PRESENCE OF PROSTHETIC HEART VALVE Status: Chronic (8) HTN (hypertension) Code(s): I10 - ESSENTIAL (PRIMARY) HYPERTENSION Status: Chronic Qualifiers: Hypertension type: essential hypertension Qualified Code(s): I10 - Essential (primary) hypertension (9) Epistaxis Code(s): R04.0 - EPISTAXIS Status: Resolved (10) Gastric AVM Code(s): Q27.33 - ARTERIOVENOUS MALFORMATION OF DIGESTIVE SYSTEM VESSEL Status : Acute (11) Gastritis Code(s): K29.70 - GASTRITIS, UNSPECIFIED, WITHOUT BLEEDING Status: Acute - Plan * doing better * d/c home and check inr at home
[2017-01-11 12:30] LABS: Anion Gap 11 mmol/L (10-20); BUN (Urea Nitrogen) 22 mg/dL (8.4-25.7); Calc. Creatinine Clearance 80 mL/min (70-130); Calcium 8.9 mg/dL (7.8-10.44); Carbon Dioxide 23 mmol/L (23-31); Chloride 104 mmol/L (98-107); Estimated GFR-MDRD 53
--- NOTE | 2017-01-11 23:21 | DIS ---
DATE OF ADMISSION: 01/03/2017 DATE OF DISCHARGE: 01/11/2017 DISCHARGE DIAGNOSES: Acute respiratory failure with hypoxia and hypercapnia, resolved; anemia secon winifred to acute blood loss from GI tract; prosthetic aortic valve with chronic anticoagulation with Co umadin; diabetes type 2, stable; coronary artery disease, stable; constipation, resolved; status pos t EGD on 01/06/2017 showing possible gastritis and AVM; status post placement of left internal jugul ar MediPort catheter to be used for chronic transfusions; epistaxis, resolved; gastritis, stable. DISCHARGE MEDICATIONS: Include all the same as admit medications. CONSULTANTS ON THE CASE: GI, Cardiology, Pulmonary, and Cardiovascular Thoracic Surgery. BRIEF HOSPITAL COURSE: This is a 66-year-old pleasant gentleman who came into the hospital, [facility], he is intubated during that stay and was admitted to the ICU. Please refer to the admitting physician for further details. The patient was found to be severely anemic with a hemoglobin of 6.8 . He was given IV transfusions. Later the next day, he was doing well since the intubation was mor e prophylactic and he had no actual lung pathology, he was easily extubated. During this hospital s herlinda, CVTS was consulted to place left internal MediPort catheter, which was done on 01/04/2017. Oth er studies done this hospital stay were CT scan of the abdomen, which showed no retroperitoneal blee d; CT brain, which was negative; CT cervical spine, which showed no fractures. The patient also had an endoscopy on the 01/06/2017, which showed a possible gastritis and AVM. Dr. Gonzalez recommend ed to follow the patient's hemoglobin and if stable, restart the patient back on Coumadin. The karl ent's hemoglobin stabilized. He stopped bleeding. Coumadin was started. INR today is 2.1. Right now, he is medically stable to be discharged with outpatient follow up with INR and follow up with t anthony PCP and Cardiology. He is asked to come back to the emergency room in case symptoms recur. Total time for this discharge took 35 minutes.
== END 2017-01-11 15:55 | disposition home or self-care (01) | DRG 299 ==
LOC: ERS 04:29 → CCU 05:55 → 2NO 01-04 12:22
PROVIDERS: ADMIT Internal Medicine; ATTEND Internal Medicine
PROC: 30233N1 Transfusion of Nonautologous Red Blood Cells into Peripheral Vein, Percutaneous Approach (ICD-10-PCS; principal; 2017-01-03)
PROC: 5A1935Z Respiratory Ventilation, Less than 24 Consecutive Hours (ICD-10-PCS; 2017-01-03)
PROC: 0BH17EZ Insertion of Endotracheal Airway into Trachea, Via Natural or Artificial Opening (ICD-10-PCS; 2017-01-03)
PROC: 0JH60WZ Insertion of Totally Implantable Vascular Access Device into Chest Subcutaneous Tissue and Fascia, Open Approach (ICD-10-PCS; 2017-01-04)
PROC: 02HV33Z Insertion of Infusion Device into Superior Vena Cava, Percutaneous Approach (ICD-10-PCS; 2017-01-04)
PROC: B518YZA Fluoroscopy of Superior Vena Cava using Other Contrast, Guidance (ICD-10-PCS; 2017-01-04)
PROC: 0DJ08ZZ Inspection of Upper Intestinal Tract, Via Natural or Artificial Opening Endoscopic (ICD-10-PCS; 2017-01-06)
DX: Q27.33 Arteriovenous malformation of digestive system vessel (principal); J96.02 Acute respiratory failure with hypercapnia; D62 Acute posthemorrhagic anemia; K29.70 Gastritis, unspecified, without bleeding; I25.10 Atherosclerotic heart disease of native coronary artery without angina pectoris; Z95.2 Presence of prosthetic heart valve; Z79.01 Long term (current) use of anticoagulants; R04.0 Epistaxis; K59.00 Constipation, unspecified; E11.22 Type 2 diabetes mellitus with diabetic chronic kidney disease; I12.9 Hypertensive chronic kidney disease with stage 1 through stage 4 chronic kidney disease, or unspecified chronic kidney disease; N18.3 Chronic kidney disease, stage 3 (moderate)
CPT/HCPCS: 36415; 36416; 36430; 51702; 70450; 71010; 72125; 74000; 74176; 80048; 80053; 80202; 81003; 81015; 82140; 82550; 82553; 82607; 82746; 82805; 83540; 83550; 83605; 83735; 83880; 83930; 84484; 85014; 85018; 85025; 85049; 85610; 85730; 86850; 86900; 86901; 87040; 87086; 93005; 94002; 94640; 96365; 96367; 96375; A4216; C1788; G8978-GP-CJ; G8979-GP-CH; J0360; J0696; J1580; J1642; J1644; J1650; J2001; J2060; J2405; J2543; J2550; J2704; J2765; J3010; J3370; J7050; P9016; Q0162; S0028

== ENCOUNTER 2017-01-21 12:11 | Day surgery (SDC) | payer MEDICARE, BC ==
[2017-01-21] MEDS ORDERED: Acetaminophen 500 MG TAB PO SCH (12:45)
[2017-01-21] MEDS ORDERED: diphenhydrAMINE HCl 25 MG CAP PO SCH (12:45)
[2017-01-21] MEDS ORDERED: Sodium Chloride 0.9% 20 ML ONE (14:29)
[2017-01-21] MEDS ORDERED: Furosemide 20 MG/2 ML VIAL SLOW IVP SCH (16:30)
[2017-01-21] MEDS ORDERED: cloNIDine HCl 0.1 MG TAB PO PRN (16:31)
[2017-01-21 19:11] VITALS: BP 187/75; TEMP 98.2
[2017-01-21 19:39] LABS: #Eosinphils 0.2 thou/uL (0.0-0.7); #Lymphocytes 0.9 thou/uL (1.20-3.40); #Monocytes 0.4 thou/uL (0.11-0.59); #Neutrophils 3.5 thou/uL (1.40-6.50); %Basophils 0.4 % (0.0-1.0); %Eosinophils 3.5 % (0.0-10.0); %Lymphocytes 17.4 % (21.0-51.0); %Monocytes 8.3 % (0.0-10.0); Mean Platelet Volume 7.7 fL (7.4-10.4); Red Blood Cell (RBC) Count 3.25 mill/uL (4.70-6.10)
== END 2017-01-21 19:30 | disposition home or self-care (01) ==
LOC: ONC/OP 12:11
PROVIDERS: ATTEND Internal Medicine Medical Oncology
PROC: 30233N1 Transfusion of Nonautologous Red Blood Cells into Peripheral Vein, Percutaneous Approach (ICD-10-PCS; principal; 2017-01-21)
DX: D64.9 Anemia, unspecified (principal); E11.9 Type 2 diabetes mellitus without complications; I25.10 Atherosclerotic heart disease of native coronary artery without angina pectoris; E78.5 Hyperlipidemia, unspecified; I10 Essential (primary) hypertension; Z79.01 Long term (current) use of anticoagulants; Z79.82 Long term (current) use of aspirin; Z79.4 Long term (current) use of insulin; Z79.1 Long term (current) use of non-steroidal anti-inflammatories (NSAID); Z79.899 Other long term (current) drug therapy; Z95.1 Presence of aortocoronary bypass graft; Z95.2 Presence of prosthetic heart valve; Z87.891 Personal history of nicotine dependence; Z86.73 Personal history of transient ischemic attack (TIA), and cerebral infarction without residual deficits
CPT/HCPCS: 36430; 82728; 85025; 86850; 86900; 86901; 96374; A4216; J1642; J1940; P9016

== ENCOUNTER 2017-02-24 11:55 | Outpatient (CLI) | payer MEDICARE, BC ==
--- NOTE | 2017-02-24 13:37 | RAD ---
THREE VIEWS LEFT FOOT: History: Evaluate for osteomyelitis. Comparison: 06-25-14 FINDINGS: Stable sclerosis involving the osseous structures on either side of the first interphalangeal joint s pace. There are no destructive changes. The lisfranc alignment is maintained. No fracture. Minimal va scular calcifications are noted. There is midfoot soft tissue swelling. IMPRESSION: Soft tissue swelling. No radiographic evidence of osteomyelitis. MRI or 3-phase bone scan if clinical ly warranted. POS: [facility]
== END 2017-02-24 11:56 | disposition home or self-care (01) ==
LOC: RAD-FRANK 11:55
PROVIDERS: ATTEND Nurse Practitioner Family
DX: L08.9 Local infection of the skin and subcutaneous tissue, unspecified (principal); M79.89 Other specified soft tissue disorders